=== PATIENT | male | born 1960 | race Caucasian/White ===

== ENCOUNTER 2018-10-05 15:09 | Inpatient (IN) | payer OTHER ==
--- NOTE | 2018-10-05 15:18 | ED ---
HPI Chest Pain - HPI Summary HPI Summary: A 58 y/o male brought in by [facility] ambulance presents to [facility] with a chief complaint of chest pain today. His chest pain radiates to his jaw and he also c/ o SOB. Pt denies any fever, chills, erythema of eyes, sore throat, cough, abdominal pain, N/V, dysuria, hematuria, myalgia, edema, rash, or dizziness. He denies a Hx HTN, DM or HLD but reports RA. He says that he lost 40 pounds in the last 1.5 years and is getting a colonoscopy soon for anemia. - History of Current Complaint Hx Obtained From: Patient, EMS Onset/Duration: Started Hours Ago, Still Present Timing: Constant, Lasting Hours Initial Severity: Mild Current Severity: Mild Pain Intensity: 0 Pain Scale Used: 0-10 Numeric Chest Pain Location: Diffuse Chest Pain Radiates: Yes Chest Pain Radiates To:: Jaw Character: Other: - unable to describe Aggravating Factor(s): Nothing Alleviating Factor(s): Nothing Associated Signs and Symptoms: Positive: Shortness of Breath. Negative: Dizziness, Fever, Nausea, Cough, Vomiting - Allergy/Home Medications Allergies/Adverse Reactions: Allergies Allergy/AdvReac Type Severity Reaction Status Date / Time No Known Allergies Allergy Verified 10/05/18 15:21 PMH/Surg Hx/FS Hx/Imm Hx Musculoskeletal History: Reports: Hx Rheumatoid Arthritis - IN BOTH HANDS AND FEET Review of Systems Negative: Fever, Chills Negative: Erythema Negative: Sore Throat Positive: Chest Pain Positive: Shortness Of Breath. Negative: Cough Negative: Abdominal Pain, Vomiting, Nausea Negative: dysuria, hematuria Negative: Myalgia, Edema Negative: Rash Neurological: Negative - dizziness All Other Systems Reviewed And Are Negative: Yes Physical Exam - Summary Physical Exam Summary: Constitutional: Well-developed, Well-nourished, Alert. (-) Distressed Skin: Dry, hot to the touch HENT: Normocephalic; Atraumatic Eyes: Conjunctiva normal Neck: Musculoskeletal ROM normal neck. (-) JVD, (-) Stridor, (-) Tracheal deviation Cardio: Rhythm regular, rate normal, Heart sounds normal; Intact distal pulses; The pedal pulses are 2+ and symmetric. Radial pulses are 2+ and symmetric. (-) Murmur Pulmonary/Chest wall: Effort normal. (-) Respiratory distress, (-) Wheezes, (-) Rales, (+) crackles in the left lower lung field. Abd: Soft, (-) tenderness, (-) Distension, (-) Guarding, (-) Rebound Musculoskeletal: (-) Edema Lymph: (-) Cervical adenopathy Neuro: Alert, Oriented x3 Psych: Mood and affect Normal Triage Information Reviewed: Yes Vital Signs Reviewed: Yes Diagnostics - Laboratory Result Diagrams: 10/05/18 15:25 10/05/18 15:25 Lab Statement: Any lab studies that have been ordered have been reviewed, and results considered in the medical decision making process. - Radiology CXR Radiology Interpretation Completed By: Radiologist Summary of Radiographic Findings: Moderate left pleural effusion with adjacent airspace opacification (consolidation versus. passive atelectasis). This could be further evaluated by chest CT to rule out. parapneumonic effusion. ED physician has reviewed this imaging report. - CT Chest CT Interpretation Completed By: Radiologist Summary of CT Findings: 1. Moderate left pleural effusion with mild compressive atelectasis in the left. lower lobe and mild adjacent infiltrate or atelectasis in the left lower lobe. 2. Minimal debris in the right mainstem bronchus. 3. Otherwise negative CT chest. ED physician has reviewed this imaging report. Chest Pain Course/Dx - Course Course Of Treatment: A 58 y/o male brought in by [facility] ambulance presents to [facility] with a chief complaint of chest pain today. His chest pain radiates to his jaw. Pt denies any fever, chills, erythema of eyes, sore throat, cough, abdominal pain, N/V, dysuria, hematuria, myalgia, edema, rash, or dizziness. He denies a Hx HTN, DM or HLD but reports RA. He says that he lost 40 pounds in the last 1.5 years and is getting a colonoscopy soon for anemia. The physical exam revealed that his skin is hot to the touch and he has crackles in the left lower lung field. In the ED course the patient was given Zithromax IVPB, Iohexol IV and [place] PO. Blood work and chemistries obtained. WBC of 12.3 at 15: 25. CT chest impression: 1. Moderate left pleural effusion with mild compressive atelectasis in the left. lower lobe and mild adjacent infiltrate or atelectasis in the left lower lobe. 2. Minimal debris in the right mainstem bronchus. 3. Otherwise negative CT chest. CXR impression: Moderate left pleural effusion with adjacent airspace opacification (consolidation versus. passive atelectasis). This could be further evaluated by chest CT to rule out. parapneumonic effusion. Pt is a high risk for sepsis because of his RA along with being on immunosuppresants and his DM. Discussed case with [facility], who accepted the patient for admission. The patient is agreeable with this plan. - Diagnoses Provider Diagnoses: Community acquired pneumonia, Pleural effusion, left - Provider Notifications Discussed Care Of Patient With: Wicho Todd Time Discussed With Above Provider: 20:54 Instructed by Provider To: Admit As Inpatient Discharge - Sign-Out/Discharge Documenting (check all that apply): Patient Departure - admit Patient Received Moderate/Deep Sedation with Procedure: No - Discharge Plan Condition: Fair Disposition: ADMITTED TO [facility] Referrals: No Primary Care Phys,NOPCP [Primary Care Provider] - - Attestation Statements Document Initiated by Scribe: Yes Documenting Scribe: Celestine Hernández Provider For Whom Scribe is Documenting (Include Credential): Moises Wayne MD Scribe Attestation: ICelestine, scribed for Moises Wayne MD on 10/05/18 at 2054. Status of Scribe Document: Ready Consult Consult: At 19:[address] about when the patient's CT chest will be done.
[2018-10-05 15:55] LABS: ABS Basophils 0.1 10^3/ul (0-0.2); ABS Eosinophils 0.2 10^3/ul (0-0.6); ABS Lymphocytes 0.8 10^3/ul (1.0-4.8); ABS Monocytes 0.8 10^3/ul (0-0.8); ABS Neutrophils 10.5 10^3/ul (1.5-7.7); Eosinophil % 1.3 %; Hematocrit 32 % (42-52); Hemoglobin 10.7 g/dL (14.0-18.0); INR 1.12 (0.82-1.09); Lymphocyte % 6.3 %; Mean Corpuscular HGB Conc 33 g/dL (31-36); Mean Corpuscular Hemoglobin 31 pg (27-31); Mean Corpuscular Volume 93 fL (80-94); Mean Platelet Volume 7.7 fL (7.4-10.4); Platelet Count 490 10^3/uL (150-450); Red Blood Count 3.48 10^6 /uL (4.18-5.48); Red Cell Distribution Width 14 % (10-15); White Blood Count 12.3 10^3/uL (3.5-10.8)
[2018-10-05 16:10] LABS: Albumin 3.5 g/dL (3.2-5.2); BUN/Creatinine Ratio 16.4 (8-20); Calcium 8.9 mg/dL (8.6-10.3); EGFR African American 146.4 (>60); Globulin 3.6 g/dL (2-4); Total Bilirubin 0.3 mg/dL (0.2-1.0); Total Protein 7.1 g/dL (6.4-8.9)
[2018-10-05 16:11] LABS: Troponin I 0.01 ng/mL (<0.04)
[2018-10-05] MEDS ORDERED: Azithromycin 500 mg/250 ml NS 500 MG/250 ML BAG IVPB ONE (16:30)
[2018-10-05] MEDS ORDERED: cefTRIAXone(*) 1 GM in NS 0.9% 50 ML* 50 ML IVPB ONE (16:30)
[2018-10-05] MEDS ORDERED: HYDROcodone/ACETAMIN 5-325 MG* 1 TAB PO ONE (16:43)
[2018-10-05] MEDS ORDERED: Iohexol 300* (CONTRAST) 10 ML SDV IV ONE (17:19)
[2018-10-05] MEDS ORDERED: NS 0.9% 1000 ML** 3,000 ML IV ONE (20:55)
[2018-10-05] MEDS: NS 0.9% 1000 ML** 2,100 ML IV ONE ×2 (21:00→23:12)
[2018-10-05] MEDS ORDERED: Albuterol/Ipratropium NEB.SOL* Albuterol 2.5 MG/Ipratropium 0.5 MG 3 ML INH PRN (21:45)
[2018-10-05] MEDS ORDERED: Nicotine PATCH 21 MG/24 HR* PATCH TRANSDERM ONE (22:17)
[2018-10-05] MEDS: Enoxaparin(*) 40 MG/0.4 ML SYR SUBCUT SCH (23:12)
--- NOTE | 2018-10-05 23:45 | HP ---
CC: Dr. Garvin * HISTORY AND PHYSICAL: DATE OF ADMISSION: 10/05/18 PRIMARY CARE PROVIDER: None. FOUNDRY WORKER: Dr. Garvin. ATTENDING PHYSICIAN: Dr. Todd * (dictated by ANTONIETTA Lawson). CHIEF COMPLAINT: "Pain in my chest." HISTORY OF PRESENT ILLNESS: Mr. Hutchinson is a 58-year-old male with past medical history significant for only rheumatoid arthritis, who presented to ER today with complaints of pain in the chest. He states that it occurred today after he ate lunch. He notes that it was sudden in onset. He notes that the pain is located on the anterior chest bilaterally. Pain is with deep breathing. He notes that the pain is "jagged," "shooting" pain with each inhalation. The pain is nontender to palpation. Currently his pain is rated at 5/10. There is no radiation. No diaphoresis. No extremity edema. The patient denies cough. He does note subjective fevers and chills as well as shortness of breath. He notes that he had a similar feeling on Wednesday. He states that he took a nap and felt better but that he has had increased fatigue and sleeping recently. In the ER, the patient is noted to be tachycardic, tachypneic with leukocytosis , lactic acid is negative. The patient was given [place] 5, azithromycin 500, ceftriaxone 1 g. Workup included laboratory data which revealed leukocytosis, decreased H and H, and elevated platelets. Troponins have been negative x2. Again, there has been no lactic acidosis. Chest x-ray and CT of the chest were ordered and both revealed left lower lobe infiltrate with left pleural effusion. Hospitalist team was asked to evaluate the patient for admission. PAST MEDICAL HISTORY: Rheumatoid arthritis. PAST SURGICAL HISTORY: Tonsillectomy. HOME MEDICATIONS: 1. Folic acid 1 mg p.o. daily. 2. Ibuprofen 800 mg p.o. b.i.d. 3. Methotrexate 15 mg p.o. weekly. 4. Xeljanz 5 mg p.o. b.i.d. ALLERGIES: No known drug allergies. FAMILY HISTORY: Father and brother both had MIs at the age of 57. Mother had glioblastoma, CVA. Paternal grandfather had colon cancer. Denies family history of diabetes mellitus. Denies family history of lung disease. SOCIAL HISTORY: The patient states that he smokes approximately two-thirds of a pack per day times approximately 45 years. He drinks occasionally, approximately 2 beers per week. He uses marijuana almost daily. 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 He lives alone. In the event that he is unable to make his own medical decisions, he has appointed his Kriss Hutchinson to be his surrogate decision maker. REVIEW OF SYSTEMS: A 10-point review of systems has been performed and all the pertinent positives and negatives are in the HPI, all other systems are negative. PHYSICAL EXAMINATION GENERAL: Mr. Hutchinson is a well-developed, well-nourished, thin, middle aged male who is sitting up in bed. He has no oxygen requirements currently. He is able to talk in complete sentences without shortness of breath or use of accessory muscles. He appears fatigued but is able to engage in conversation. He is cooperative and appropriate. VITAL SIGNS: Temperature 99.8 temporal, heart rate 94, respiratory rate 23, oxygen saturation 95% on room air, blood pressure 150/91. HEENT: PERRL. EOMI. Normocephalic, atraumatic. Nonicteric sclerae. Oral mucous membranes are moist and without lesions. The pharynx is clear. Hearing is grossly intact. PULMONARY: Symmetrical chest expansion, no use of accessory muscles. Bilateral lung reyes with coarse rhonchi and wheezing throughout. Chest wall nontender to palpation. CARDIOVASCULAR: Regular rate and rhythm without murmurs, rubs, clicks, or gallops. There is no JVD. ABDOMEN: Flat, bowel sounds noted in all quadrants. There is no tenderness to palpation throughout the abdomen. MUSCULOSKELETAL: Full range of motion. There are multiple nodules noted at bilateral elbows and wrists as well as a left lateral PIP nodule. These are chronic. The patient has extensive joint pain from RA. NEURO: The patient is awake. He is alert and oriented x3. He has no focal neurological deficit. Again, he is able to move all of his extremities. DIAGNOSTIC STUDIES/LABORATORY DATA: WBC 12.3, RBC 3.48, Hgb 10.7, HCT 32, platelets 490. CMP within normal limits except for glucose 125. Lactic acid 2.0, troponin 0.01 x3. EKG: Sinus tachycardia with a rate of 102. P-waves noted, irregular rhythm. Chest x-ray, impression: Moderate left pleural effusion with adjacent airspace opacification (consolidation versus passive atelectasis). This could be further evaluated by chest CT to rule out parapneumonic effusion. CT of the chest, impression: Moderate left pleural effusion with mild compressive atelectasis in the left lower lobe and mild adjacent infiltrate or atelectasis in the left lower lobe. Minimal debris in the right main stem bronchus. Otherwise, negative CT chest. ASSESSMENT AND PLAN: Mr. Hutchinson is a 58-year-old male with a past medical history of rheumatoid arthritis, who presented to the ER today with complaints of pain in the chest and was found to have negative troponins, no ST changes on EKG, and imaging positive for left lower lobe infiltrate with pleural effusion. The patient will be admitted inpatient for: 1. Sepsis. The patient comes in with tachycardia, tachypnea, leukocytosis. There is no lactic acidosis. He required O2 at the beginning but currently is not on O2. He has left lower lobe infiltrates with left pleural effusion on CT. He has been given a dose of ceftriaxone and azithromycin in the ER, this will be continued during his stay. Ultrasound thoracentesis has been ordered. DuoNeb q.4 hours p.r.n. also ordered for wheeze, shortness of breath. 2. Rheumatoid arthritis. The patient's home medications will be held for the time being. 3. Tobacco abuse. The patient was offered a patch and is agreeable. This will be ordered. 4. DVT prophylaxis: According to the DVT risk assessment, the patient scores 1 placing him at a low risk. Lovenox has been ordered. 5. Code status: Full code. TIME SPENT: Approximately 60 minutes were spent on this admission, greater than half that time was spent with the patient obtaining history, performing physical, and reviewing the plan of care. This case has been reviewed with my attending, who is in agreement with the plan of care. ANTONIETTA SAUCEDA [id number]/[facility] #: [id number] MTDCassandra
[2018-10-06 07:02] LABS: ABS Basophils 0.1 10^3/ul (0-0.2); ABS Lymphocytes 0.6 10^3/ul (1.0-4.8); ABS Monocytes 0.7 10^3/ul (0-0.8); ABS Neutrophils 9.2 10^3/ul (1.5-7.7); Eosinophil % 0.4 %; Hematocrit 28 % (42-52); Hemoglobin 9.6 g/dL (14.0-18.0); Lymphocyte % 5.7 %; Mean Corpuscular HGB Conc 34 g/dL (31-36); Mean Corpuscular Hemoglobin 31 pg (27-31); Mean Corpuscular Volume 92 fL (80-94); Mean Platelet Volume 7.6 fL (7.4-10.4); Platelet Count 404 10^3/uL (150-450); Red Blood Count 3.07 10^6 /uL (4.18-5.48); Red Cell Distribution Width 14 % (10-15); White Blood Count 10.7 10^3/uL (3.5-10.8)
[2018-10-06 07:20] LABS: BUN/Creatinine Ratio 17.4 (8-20); Calcium 8.5 mg/dL (8.6-10.3); EGFR Non-African American 186.7 (>60); Potassium 3.9 mmol/L (3.5-5.0)
[2018-10-06] MEDS: Nicotine PATCH 21 MG/24 HR* PATCH TRANSDERM SCH (11:30)
[2018-10-06] MEDS: Nicotine Patch Removal NOTE PATCH OFF SCH ×2 (11:31→21:55)
[2018-10-06] MEDS: Folic Acid TAB* 1 MG PO SCH (11:32)
[2018-10-06 15:20] LABS: Body Fluid Source Pleural Fluid
[2018-10-06] MEDS: cefTRIAXone(*) 1 GM in NS 0.9% 50 ML* 50 ML IVPB SCH (16:55)
[2018-10-06] MEDS: Acetaminophen TAB* 325 MG PO PRN (17:03)
[2018-10-06] MEDS: Azithromycin IV(*) 250 MG in NS 0.9% 250 ML* 250 ML IVPB SCH (17:34)
--- NOTE | 2018-10-06 17:47 | PN ---
Subjective Date of Service: 10/06/18 Interval History: Patient resting in bed on assessment. He reports he feels improvement in his breathing today. He reports prior to presenting to the ED he had difficulty taking deep breaths as it caused chest pain. He reports today he can take a deep breath without pain. Denies fever, chills, and cough. He reports that he has been losing weight recently unintentionally and was also recently informed by outpatient provider that he was anemic. Given this patient was set up for a colonoscopy which he has not had completed yet. Objective Active Medications: Acetaminophen (Tylenol Tab*) 650 mg PO Q6H PRN PRN Reason: fever, mild pain Last Admin: 10/06/18 17:03 Dose: 650 mg Albuterol/Ipratropium (Duoneb (Albuterol 2.5 Mg/Ipratropium 0.5 Mg)) 1 neb INH [id number] AWAKE PRN PRN Reason: sob/wheexing Enoxaparin Sodium (Lovenox(*)) 40 mg SUBCUT Q24H [facility] Last Admin: 10/05/18 23:12 Dose: 40 mg Folic Acid (Folvite Tab*) 1 mg PO DAILY [facility] Last Admin: 10/06/18 11:32 Dose: 1 mg Azithromycin 250 mg/ Sodium (Chloride) 250 mls @ 250 mls/hr IVPB Q24H [facility] Last Admin: 10/06/18 17:34 Dose: 250 mls/hr Ceftriaxone Sodium 1 gm/ (Sodium Chloride) 50 mls @ 200 mls/hr IVPB Q24H [facility] Last Admin: 10/06/18 16:55 Dose: 200 mls/hr Nicotine (Nicotine Patch 21 Mg/24 Hr*) 1 patch TRANSDERM DAILY [facility] Last Admin: 10/06/18 11:30 Dose: 1 patch Pharmacy Profile Note (Nicotine Patch Removal Note*) 1 note PATCH OFF 2100 [facility] Last Admin: 10/06/18 11:31 Dose: 1 note Vital Signs - 8 hr 10/06/18 10/06/18 11:37 11:41 Temperature 97.8 F Pulse Rate 94 Respiratory 20 18 Rate Blood Pressure 153/81 (mmHg) O2 Sat by Pulse 96 Oximetry Oxygen Devices in Use Now: None Appearance: Comfortable, NAD Eyes: No Scleral Icterus Ears/Nose/Mouth/Throat: Clear Oropharnyx, Mucous Membranes Moist Neck: NL Appearance and Movements; NL JVP Respiratory: Symmetrical Chest Expansion and Respiratory Effort, - - Moderately diminished lung sounds on left. Clear and only slightly decreased aeration on right. Cardiovascular: NL Sounds; No Murmurs; No JVD, No Edema Abdominal: NL Sounds; No Tenderness; No Distention Lymphatic: No Cervical Adenopathy Extremities: No Clubbing, Cyanosis Skin: No Rash or Ulcers Neurological: Alert and Oriented x 3 Nutrition: Taking PO's Result Diagrams: 10/06/18 06:28 10/06/18 06:28 Additional Lab and Data: Laboratory Results - last 24 hr 10/05/18 10/05/18 10/06/18 18:01 21:21 06:28 WBC RBC Hgb Hct MCV MCH MCHC RDW Plt Count MPV Neut % (Auto) Lymph % (Auto) [place] % (Auto) Eos % (Auto) Baso % (Auto) Absolute Neuts (auto) Absolute Lymphs (auto) Absolute Monos (auto) Absolute Eos (auto) Absolute Basos (auto) Absolute Nucleated RBC Nucleated RBC % Sodium 136 Potassium 3.9 Chloride 103 Carbon Dioxide 25 Anion Gap 8 BUN 8 Creatinine 0.46 L Est GFR ( Amer) 226.0 Est GFR (Non-Af Amer) 186.7 BUN/Creatinine Ratio 17.4 Glucose 120 H Calcium 8.5 L Troponin I 0.01 0.01 Fluid Source Fluid Volume Fluid Color Fluid Appearance Fluid WBC Fluid RBC 10/06/18 10/06/18 06:28 14:23 WBC 10.7 RBC 3.07 L Hgb 9.6 L Hct 28 L MCV 92 MCH 31 MCHC 34 RDW 14 Plt Count 404 MPV 7.6 Neut % (Auto) 86.8 Lymph % (Auto) 5.7 [place] % (Auto) 6.5 Eos % (Auto) 0.4 Baso % (Auto) 0.6 Absolute Neuts (auto) 9.2 H Absolute Lymphs (auto) 0.6 L Absolute Monos (auto) 0.7 Absolute Eos (auto) 0.0 Absolute Basos (auto) 0.1 Absolute Nucleated RBC 0.0 Nucleated RBC % 0.0 Sodium Potassium Chloride Carbon Dioxide Anion Gap BUN Creatinine Est GFR ( Amer) Est GFR (Non-Af Amer) BUN/Creatinine Ratio Glucose Calcium Troponin I Fluid Source Pleural fluid Fluid Volume 22 Fluid Color Yellow Fluid Appearance Cloudy Fluid WBC 4961 Fluid RBC 2362 Microbiology and Other Data: Microbiology 10/06/18 14:23 Gram Stain - Final Pleural Fluid 10/05/18 15:34 Aerobic Blood Culture - Preliminary Blood Venous No Growth Day 1 Anaerobic Blood Culture - Preliminary No Growth Day 1 10/05/18 15:35 Aerobic Blood Culture - Preliminary Blood Venous No Growth Day 1 Anaerobic Blood Culture - Preliminary No Growth Day 1 10/06/18 01:13 Legionella Urinary Antigen - Final Urine Negative Legionella Antigen Streptococcus pneumoniae Ag Screen - Final Negative S. pneumo Antigen Assess/Plan/Problems-Billing Assessment: 58 yr old male with pmh of RA; who presented to ED with shortness of breath and chest pain - Patient Problems (1) Sepsis Comment: - Met sepsis on admission with leukocytosis, tachycardia and source of lung - Resolved - Cont abx and supportive care - Blood cultures are negative to date - Urine antigens negative (2) Chest pain Comment: - Resolved - Reports previously it occured with deep breathing, therefore, inhibited him from taking a deep breath - Trops negative - EKG unremarkable (3) Shortness of breath Comment: - Reports improvement today - Initially requiring supplemental O2 to maintain oxygen saturation, but currently on room air and wnl. - Suspected secondary to effusion and/or infection - Cont abx - Thoracentesis today with radiology (4) Pleural effusion Comment: - Thoracentesis today with radiology - Pleural fluid ordered placed (5) Rheumatoid arthritis Comment: - Cont holding home medication for the time being. - If stay is prolonged will contact Dr Cortez (6) Weight loss Comment: - Patient reports unintentional weight loss - Has outpatient follow up for colonoscopy - Defer to outpatient provider (7) Anemia Comment: - - Iron studies ordered. - Stool ordered - Patient reports this has been noted by pcp recently (8) DVT prophylaxis Comment: - Lovenox Status and Disposition: Inpatient. Discharge home when medically stable Attending: Nathalie Saez
[2018-10-06 18:15] LABS: Body Fluid Band 5 %; Body Fluid Mono 2 %
[2018-10-06 19:11] LABS: Total Iron Binding Capacity 273 mcg/dL (250-450); Transferrin 195 mg/dL (203-362)
[2018-10-06 19:28] LABS: Ferritin 110.6 ng/mL (24-336)
[2018-10-06 19:31] LABS: Folate 11.06 ng/mL (>3.99)
[2018-10-06 19:36] LABS: % Iron Saturation 7 % (15-55); Iron < 20 ug/dL (50-212)
[2018-10-06] MEDS: Enoxaparin(*) 40 MG/0.4 ML SYR SUBCUT SCH (21:54)
[2018-10-07 06:26] LABS: ABS Eosinophils 0.1 10^3/ul (0-0.6); ABS Lymphocytes 0.8 10^3/ul (1.0-4.8); ABS Monocytes 0.7 10^3/ul (0-0.8); ABS Neutrophils 7.4 10^3/ul (1.5-7.7); Eosinophil % 0.9 %; Hematocrit 29 % (42-52); Lymphocyte % 8.5 %; Mean Corpuscular HGB Conc 34 g/dL (31-36); Mean Corpuscular Hemoglobin 31 pg (27-31); Mean Corpuscular Volume 92 fL (80-94); Mean Platelet Volume 7.8 fL (7.4-10.4); Platelet Count 399 10^3/uL (150-450); Red Cell Distribution Width 14 % (10-15)
[2018-10-07 06:40] LABS: Anion Gap 8 mmol/L (2-11); BUN/Creatinine Ratio 14.6 (8-20); Blood Urea Nitrogen 7 mg/dL (6-24); CO2 Carbon Dioxide 26 mmol/L (22-32); Calcium 8.4 mg/dL (8.6-10.3); Chloride 102 mmol/L (101-111); EGFR African American 215.1 (>60); EGFR Non-African American 177.8 (>60); Glucose 106 mg/dL (70-100); Potassium 3.8 mmol/L (3.5-5.0); Sodium 136 mmol/L (135-145)
[2018-10-07 08:31] LABS: Corrected Retic Count 0.7 % (0.5-1.5); Hematocrit for Retic CNT 30 % (42-52); Immature Retic Fraction 0.52; RBC Retic Count 3.24 10^6/uL (4.18-5.48)
--- NOTE | 2018-10-07 09:58 | PN ---
Subjective Date of Service: 10/07/18 Interval History: Resting in bed on assessment. Reports improvement in breathing since admission and since thoracentesis last evening. Improved aeration on left. Denies chest pain, palpitations, fever, chills, cough, nausea, vomiting. Received call from RN that patient had short run of SVT early this morning and a 4 beat run of VT early this morning. Later received call from RN that patient was tachy in the low 100 to 120. Patient asymptomatic per RN. Objective Active Medications: Acetaminophen (Tylenol Tab*) 650 mg PO Q6H PRN PRN Reason: fever, mild pain Last Admin: 10/06/18 17:03 Dose: 650 mg Albuterol/Ipratropium (Duoneb (Albuterol 2.5 Mg/Ipratropium 0.5 Mg)) 1 neb INH [id number] AWAKE PRN PRN Reason: sob/wheexing Enoxaparin Sodium (Lovenox(*)) 40 mg SUBCUT Q24H [facility] Last Admin: 10/06/18 21:54 Dose: 40 mg Folic Acid (Folvite Tab*) 1 mg PO DAILY [facility] Last Admin: 10/06/18 11:32 Dose: 1 mg Azithromycin 250 mg/ Sodium (Chloride) 250 mls @ 250 mls/hr IVPB Q24H [facility] Last Admin: 10/06/18 17:34 Dose: 250 mls/hr Ceftriaxone Sodium 1 gm/ (Sodium Chloride) 50 mls @ 200 mls/hr IVPB Q24H [facility] Last Admin: 10/06/18 16:55 Dose: 200 mls/hr Nicotine (Nicotine Patch 21 Mg/24 Hr*) 1 patch TRANSDERM DAILY [facility] Last Admin: 10/06/18 11:30 Dose: 1 patch Pharmacy Profile Note (Nicotine Patch Removal Note*) 1 note PATCH OFF 2100 [facility] Last Admin: 10/06/18 21:55 Dose: 1 note Vital Signs - 8 hr 10/07/18 10/07/18 03:06 07:19 Temperature 99.1 F 98.1 F Pulse Rate 105 98 Respiratory 15 14 Rate Blood Pressure 146/80 132/75 (mmHg) O2 Sat by Pulse 98 96 Oximetry Oxygen Devices in Use Now: None Appearance: Comfortable, NAD Eyes: No Scleral Icterus Ears/Nose/Mouth/Throat: Clear Oropharnyx, Mucous Membranes Moist Neck: NL Appearance and Movements; NL JVP Respiratory: Symmetrical Chest Expansion and Respiratory Effort, Clear to Auscultation, - - Improved aeration on left Cardiovascular: NL Sounds; No Murmurs; No JVD, RRR, No Edema Abdominal: NL Sounds; No Tenderness; No Distention Lymphatic: No Cervical Adenopathy Extremities: No Edema Skin: No Rash or Ulcers Neurological: Alert and Oriented x 3 Nutrition: Taking PO's Result Diagrams: 10/07/18 05:25 10/07/18 05:25 Additional Lab and Data: Laboratory Results - last 24 hr 10/06/18 10/06/18 10/06/18 14:23 14:23 14:23 WBC RBC RBC (Retic) Hgb Hct HCT (Retic) MCV MCH MCHC RDW Plt Count MPV Neut % (Auto) Lymph % (Auto) Grand % (Auto) Eos % (Auto) Baso % (Auto) Absolute Neuts (auto) Absolute Lymphs (auto) Absolute Monos (auto) Absolute Eos (auto) Absolute Basos (auto) Absolute Nucleated RBC Nucleated RBC % Retic Count, Calc Corrected Retic Count Retic Shift Factor Retic Production Index Immature Retic Fraction Mean Retic Volume Sodium Potassium Chloride Carbon Dioxide Anion Gap BUN Creatinine Est GFR ( Amer) Est GFR (Non-Af Amer) BUN/Creatinine Ratio Glucose Calcium Total Bilirubin Direct Bilirubin Indirect Bilirubin Lactate Dehydrogenase Urine Color Urine Appearance Urine pH Ur Specific [place] Urine Protein Urine Ketones Urine Blood Urine Nitrate Urine Bilirubin Urine Urobilinogen Ur Leukocyte Esterase Urine Glucose Fluid Source Pleural fluid Pleural fluid Fluid Cell Count Rvw By Fluid Glucose < 2 Fluid LDH 4143 10/07/18 10/07/18 10/07/18 05:25 05:25 17:05 WBC 9.0 RBC 3.20 L RBC (Retic) 3.24 L Hgb 10.0 L Hct 29 L HCT (Retic) 30 L MCV 92 MCH 31 MCHC 34 RDW 14 Plt Count 399 MPV 7.8 Neut % (Auto) 82.4 Lymph % (Auto) 8.5 Grand % (Auto) 7.8 Eos % (Auto) 0.9 Baso % (Auto) 0.4 Absolute Neuts (auto) 7.4 Absolute Lymphs (auto) 0.8 L Absolute Monos (auto) 0.7 Absolute Eos (auto) 0.1 Absolute Basos (auto) 0.0 Absolute Nucleated RBC 0.0 Nucleated RBC % 0.0 Retic Count, Calc 1.1 Corrected Retic Count 0.7 Retic Shift Factor 1.5 Retic Production Index 0.50 Immature Retic Fraction 0.52 Mean Retic Volume 113.5 Sodium 136 Potassium 3.8 Chloride 102 Carbon Dioxide 26 Anion Gap 8 BUN 7 Creatinine 0.48 L Est GFR ( Amer) 215.1 Est GFR (Non-Af Amer) 177.8 BUN/Creatinine Ratio 14.6 Glucose 106 H Calcium 8.4 L Total Bilirubin 0.30 Direct Bilirubin 0.00 L Indirect Bilirubin Not Reportable Lactate Dehydrogenase 197 Urine Color Yellow Urine Appearance Turbid Urine pH 8.0 Ur Specific [place] 1.015 Urine Protein Negative Urine Ketones Negative Urine Blood Negative Urine Nitrate Negative Urine Bilirubin Negative Urine Urobilinogen Negative Ur Leukocyte Esterase Negative Urine Glucose Negative Fluid Source Fluid Cell Count Rvw By Fluid Glucose Fluid LDH Microbiology and Other Data: Microbiology 10/05/18 15:34 Blood Venous Aerobic Blood Culture - Preliminary No Growth Day 2 10/05/18 15:34 Blood Venous Anaerobic Blood Culture - Preliminary No Growth Day 2 10/05/18 15:35 Blood Venous Aerobic Blood Culture - Preliminary No Growth Day 2 10/05/18 15:35 Blood Venous Anaerobic Blood Culture - Preliminary No Growth Day 2 10/06/18 14:23 Pleural Fluid Gram Stain - Final 10/06/18 14:23 Pleural Fluid Body Fluid Culture - Preliminary No Growth Day 1 10/06/18 01:13 Urine Legionella Urinary Antigen - Final Negative Legionella Antigen 10/06/18 01:13 Urine Streptococcus pneumoniae Ag Screen - Final Negative S. pneumo Antigen Assess/Plan/Problems-Billing Assessment: 58 yr old male with pmh of RA; who presented to ED with shortness of breath and chest pain - Patient Problems (1) Sepsis Comment: - Had temp of 100.4 today and noted to be increasingly tachy, therefore, repeat blood cultures and lactic acid ordered - Met sepsis on admission with leukocytosis, tachycardia and source of lung - Cont abx and supportive care - Blood cultures are negative to date - Urine antigens negative (2) Chest pain Comment: - Resolved - Reports previously it occured with deep breathing, therefore, inhibited him from taking a deep breath - Trops negative - EKG unremarkable (3) Shortness of breath Comment: - Reports improvement today - Initially requiring supplemental O2 to maintain oxygen saturation, but currently on room air and wnl. - Suspected secondary to effusion and/or infection - Cont abx - Thoracentesis yesterday (4) Pleural effusion Comment: - Thoracentesis yesterday - Pleural fluid consistent with possible parapneumonic effusion, therefore, continue Rocephin, d/c Azithro and started Flagyl - Cytology consistent with inflammation (5) Rheumatoid arthritis Comment: - Cont holding home medication for the time being. - If stay is prolonged will contact Dr Cortez (6) Weight loss Comment: - Patient reports unintentional weight loss - Has outpatient follow up for colonoscopy - Defer to outpatient provider (7) Anemia Comment: - Iron studies ordered. - Stool ordered - Patient reports this has been noted by pcp recently (8) DVT prophylaxis Comment: - Lovenox Status and Disposition: Inpatient. Discharge home when medically stable Attending: Nathalie Saez
[2018-10-07 10:28] LABS: LDH 197 U/L (140-271)
[2018-10-07] MEDS: Nicotine PATCH 21 MG/24 HR* PATCH TRANSDERM SCH (10:47)
[2018-10-07] MEDS: Folic Acid TAB* 1 MG PO SCH (10:47)
[2018-10-07 16:33] LABS: Lactate Dehydrogenase, BF 4143 U/L
[2018-10-07] MEDS ORDERED: Perflutren Lipid Microsphere* 3 ML VIAL ONE (16:48)
[2018-10-07] MEDS: cefTRIAXone(*) 1 GM in NS 0.9% 50 ML* 50 ML IVPB SCH (17:12)
[2018-10-07 17:13] LABS: Urine Appearance Turbid; Urine Bilirubin Negative (Negative); Urine Blood Negative (Negative); Urine Color Yellow; Urine Glucose Negative (Negative); Urine Ketones Negative (Negative); Urine Nitrite Negative (Negative); Urine Protein Negative (Negative); Urine Specific Gravity 1.015 (1.010-1.030); Urine Urobilinogen Negative (Negative)
[2018-10-07] MEDS: Azithromycin IV(*) 250 MG in NS 0.9% 250 ML* 250 ML IVPB SCH (17:49)
--- NOTE | 2018-10-07 19:19 | ECHO ---
*[facility]* [place] [address] Fax #: [phone] Transthoracic Echocardiogram Patient: [place] Hutchinson : 1960 Study Date: 10/07/2018 Age: 58 Gender: M HR: 136 bpm Height: 70 in /177.8 cm BSA: 1.82 m^2 Weight: 144.7 lb /65.8 kg BMI: 20.8 kg/m^2 *Recreational Leader: * Rut Gomez RDCS RN *Referring Physician: * China Bunn *Reading Physician: * Narendra Gaytan MD Indications: SOB. History: Rheumatoid arthritis Risk factors: Current tobacco use. Conclusions Summary: 1. Left ventricle: The cavity size is normal. Wall thickness is normal. Systolic function is mildly reduced. The visually estimated ejection fraction is 40-45%. The calculated ejection fraction is 45%. There is mild global hypokinesis. 2. Normal cardiac chamber sizes. 3. Functionally benign heart valves. 4. There is no prior echocardiogram available to compare with at this time. Study data: Transthoracic echocardiogram. Procedure: Transthoracic echocardiography was performed. Image quality was fair. The study was technically limited due to body habitus and Smoking history. Definity 3 ml was administered IV for image enhancement by Renard Gomez RN, RDCS. Complete 2D, spectral Doppler, and color flow Doppler. Location: Bedside. Patient status: Inpatient. Patient room number: 431. Rhythm: Tachycardia with PACs. Findings Left ventricle: The cavity size is normal. Wall thickness is normal. Systolic function is mildly reduced. The visually estimated ejection fraction is 40-45%. The calculated ejection fraction is 45%. There is mild global hypokinesis. There is no consistent Doppler evidence of clinically significant diastolic dysfunction. Right ventricle: The cavity size is normal. Systolic function is normal. Left atrium: The atrium is normal in size. Right atrium: The atrium is normal in size. Mitral valve: The leaflets are mildly thickened. There is no evidence of stenosis. There is trace to mild regurgitation. Aortic valve: Not well visualized. The leaflets are mildly thickened. There is no evidence of stenosis. There is no regurgitation. Tricuspid valve: The leaflets are normal thickness. There is trace to mild regurgitation. Pulmonic valve: Not well visualized. There is no evidence of stenosis. There is no significant regurgitation. Aorta: Aortic root: The aortic root is not dilated. Ascending aorta: The ascending aorta is not visualized. Aortic arch: The aortic arch is not dilated. Pericardium: There is no pericardial effusion. Pulmonary arteries: Not well visualized. Systemic veins: Inferior vena cava: The vessel is normal in size. The respirophasic diameter changes are in the normal range (>= 50%). Measurements Left ventricle Value Ref Right atrium continued Value Ref CHARLETTE, LAX (L) 4.0 cm 4.2 - 5.8 SI dim, ES, A4C 3.8 cm 3.4 - 5.3 ESD, LAX 3.1 cm 2.5 - 4.0 Estimated RAP 3 mm Hg --------- FS, LAX (L) 22 % 25 - 43 PW, ED 1.0 cm 0.6 - 1.0 Aortic valve Value Ref IVS/PW, ED 0.97 Nita diam, ED 2.0 cm --------- PW/ID, ED 0.26 Peak v, S 1.6 m/sec --------- E', lat nita, TDI (L) 7.5 cm/sec >=10.0 VTI, S 26.5 cm -- ------- E/e', lat nita, 10 Mean grad, S 7.0 mm Hg ----- ---- TDI Peak grad, S 12.0 mm Hg --------- E', med nita, TDI 8.1 cm/sec >=7.0 LVOT/AV, VTI ratio 0.67 -- ------- E/e', med nita, 9 TDI Mitral valve Value Ref E', avg, TDI 7.8 cm/sec Peak E 0.75 m/sec ----- ---- E/e', avg, TDI 10 <=14 Peak A 0.66 m/sec -- ------- Decel time 151 ms --------- LVOT Value Ref Peak grad, D 2.2 mm Hg --------- Peak julia, S 1.31 m/sec Peak E/A ratio 1.1 --------- VTI, S 17.7 cm Peak grad, S 7 mm Hg Pulmonic valve Value Ref Mean grad, S 3 mm Hg Peak v, S 1.26 m/sec --------- Peak grad, S 6.0 mm Hg --------- Ventricular septum Value Ref IVS, ED 1.0 cm 0.6 - 1.0 Aortic root Value Ref Root diam 3.2 cm <4.0 Right ventricle Value Ref CHARLETTE minor ax, 2.9 cm 1.9 - 3.5 Aortic arch Value Ref A4C mid Arch diam 2.6 cm --------- Left atrium Value Ref Decending aorta Value Ref AP dim, ES 3.10 cm 3.00 - Corina peak julia 0.98 m/sec --------- 4.00 ML dim, A4C 2.9 cm Inferior vena cava Value Ref SI dim, A4C 4.4 cm Diam 0.9 cm --------- Vol/bsa, ES, 1-p (L) 10 ml/m^2 12 - 37 A4C Vol/bsa, ES, A/L (L) 15 ml/m^2 16 - 34 Right atrium Value Ref ML dim, ES, A4C 3.1 cm 2.6 - 4.4 Legend: (L) and (H) rona values outside specified reference range. Prepared and electronically signed by Narendra Gaytan MD 10/07/2018 19:19
[2018-10-07] MEDS: Enoxaparin(*) 40 MG/0.4 ML SYR SUBCUT SCH (20:18)
[2018-10-07] MEDS: Nicotine Patch Removal NOTE PATCH OFF SCH (20:18)
[2018-10-07] MEDS: Acetaminophen TAB* 325 MG PO PRN (20:29)
[2018-10-07] MEDS: metroNIDAZOLE IV 500 MG/100ML* 500 MG/100 ML BAG IVPB SCH (22:01)
--- NOTE | 2018-10-07 22:18 | CONS ---
CC: Dr. Korey Garvin CARDIOLOGY CONSULTATION: DATE OF CONSULT: 10/07/18 REFERRING PHYSICIAN: China Bunn NP REASON FOR CARDIOLOGY CONSULTATION: Shortness of breath and mild cardiomyopathy. HISTORY OF PRESENT ILLNESS: I was kindly asked by Ms. Bunn of the hospitalist medicine service to perform cardiology consultation on Mr. Hutchinson. He was admitted to the hospital with shortness of breath 2 days ago and subsequently is found to have mild cardiomyopathy on echocardiogram today. The patient notes that he had shortness of breath and chest discomfort acutely 2 days ago. When he came to the hospital, he was found to have a large left pleural effusion, for which he underwent thoracentesis yesterday with removal of 1300 cc of fluid, with analysis pending. He states his breathing is back to normal. He was noted to be tachycardic, so he had an echocardiogram today ( please see also that report), but in brief that showed mild cardiomyopathy with ejection fraction of 40% to 45%. PAST MEDICAL HISTORY: Significant for rheumatoid arthritis x11 years. PAST SURGICAL HISTORY: Tonsillectomy. HOME MEDICATIONS: 1. Folic acid 1 mg once a day. 2. Ibuprofen 800 mg p.o. b.i.d. 3. Methotrexate 50 mg per week. 4. Xeljanz 5 mg p.o. b.i.d. ALLERGIES TO MEDICATIONS: None. He denies shrimp, seafood, or dye allergy. FAMILY HISTORY: His father had PA at 57 and his brother had PA at 57. There is a family history of stroke and cancer in his mother. No family history of diabetes. SOCIAL HISTORY: He smokes 2/3rds of a pack of cigarettes per day and has done so for 40+ years. He is planning to quit. He occasionally drinks alcohol. He smokes marijuana. He is and lives alone. 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 He does not do regular exercise due to his rheumatoid arthritis. REVIEW OF SYSTEMS: He denies personal history of stroke, cancer, vomiting of blood, coughing up blood, bright red blood per rectum, bleeding stomach ulcers. He notes little bit of lightly blood tinged toilet paper when he wipes and has been planning to get a colonoscopy for anemia. He denies renal calculi, chololithiasis. Denies asthma, emphysema. He was told he had pneumonia on admission here on 10/05/18. He denies tuberculosis, sleep apnea, home oxygen use, diabetes. He has labile hypertension. He denies prior PA, congestive heart failure, cardiac surgery, cardiac murmurs. He denies palpitations, but when he checks his pulse, he feels it occasionally skips. He denies psychiatric illnesses, lupus, psoriasis, seizures, Parkinson's disease, myasthenia gravis. He has rheumatoid arthritis for 11 years. He denies thyroid disorders, liver disorders, kidney disorders, claudication symptoms, pulmonary emboli, deep venous thrombosis, peripheral arterial disease, heartburn symptoms, peripheral edema. All other review of systems are negative x14 except as per this documentation. PHYSICAL EXAM: Height 5 feet 10 inches, weight 145 pounds, temperature 98.1 to 100.4 degrees Fahrenheit, pulse 121, blood pressure 140/77, O2 saturation 98%. On general exam, he is a chronically ill-appearing gentleman, in no acute distress. HEENT shows the cranium is normocephalic and atraumatic. He has dry mucosal membranes. Neck veins are not distended. There are no carotid bruits visible. Skin warm and perfused. Affect is appropriate. He appears oriented. No significant kyphoscoliosis on back exam. Lungs reveals mildly decreased breath sounds at the left base. No wheezes, no rhonchi. Cardiac Exam: S1, S2. Regular rate. No significant murmurs, rubs, or gallop. PMI is nondisplaced. Abdomen: Soft and nondistended, appears benign. Extremities: Show evidence of RA deforming arthritis. No significant edema. Pulses appear grossly intact. DIAGNOSTIC STUDIES/LAB DATA: The patient completed a transthoracic echocardiogram earlier today. (Please see his lab report). It showed moderately reduced left ventricular ejection fraction of 40% to 45% with normal cardiac chamber sizes, functionally benign heart valves. Sodium 136, potassium 3.8, chloride 102, bicarbonate 26, BUN 7, creatinine 0.48. Troponin 0.01 x2. INR 1.12. White blood cell count 9, hematocrit 29, platelet count 399. IMPRESSION: Mr. Hutchinson is a pleasant 58-year-old gentleman with a longstanding history of rheumatoid arthritis admitted with shortness of breath with a large left pleural effusion, and he notes that his shortness of breath is resolved post thoracentesis pf 1.3 L (fluid analysis pend). He does have a temperature and sinus tachycardia. Review of telemetry also shows brief runs of paroxysmal supraventricular tachycardia. He is found to have mild cardiomyopathy on echocardiogram, which may be related to his history of rheumatoid arthritis, rheumatoid arthritis therapy, and recent apparent infection. He will benefit from an ischemic evaluation as an outpatient. His paroxysmal supraventricular tachycardia and sinus tachycardia are reactive and likely secondary to his anemia, large pleural effusion and fever. It is reassuring that PA has been ruled out. I have discussed this in detail with the patient and am making the following recommendations, which he is in agreement. RECOMMENDATIONS: 1. It is reasonable to trial him on Toprol XL 25 mg once a day, but again his sinus tachycardia and PSVT appears to be reactive to his anemia, pleural effusion and fever. He can be discharged from a cardiac heart rate standpoint as long as his heart rate is not persistently greater than 120 beats per minute and he should follow up with myself in 4 to 6 weeks. I will make arrangement at that time for cardiac chemical nuclear rest/stress scan for ischemic evaluation as the patient confirms he cannot exercise strenuously safely on an exercise treadmill. 2. 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 3. I agree with discontinuation of cigarettes. 4. Keep potassium 4 to 5 and check magnesium level and keep 2 to 2.5, given PSVT. Also recommend to check TSH. 5. Other management as per the hospitalist medicine and rheumatology service including regarding fhis ever. Dear Ms. China Bunn, many thanks for asking me to participate in the cardiovascular consultative care of Mr. Hutchinson. The patient will follow up with myself in 4 to 6 weeks following discharge as described above.Please do hesitate to contact me if you have any questions or concerns regarding the patient's cardiac consultative care. [id number]/[facility] #: [id number] TIEN
[2018-10-08] MEDS: metroNIDAZOLE IV 500 MG/100ML* 500 MG/100 ML BAG IVPB SCH ×2 (05:20→13:12)
[2018-10-08 05:38] LABS: ABS Lymphocytes 0.6 10^3/ul (1.0-4.8); ABS Monocytes 1.1 10^3/ul (0-0.8); ABS Neutrophils 8.4 10^3/ul (1.5-7.7); Eosinophil % 0.3 %; Hematocrit 28 % (42-52); Hemoglobin 9.8 g/dL (14.0-18.0); Lymphocyte % 6.1 %; Mean Corpuscular HGB Conc 35 g/dL (31-36); Mean Corpuscular Hemoglobin 32 pg (27-31); Mean Corpuscular Volume 91 fL (80-94); Mean Platelet Volume 7.5 fL (7.4-10.4); Nucleated Red Blood Cells % 0.1; Platelet Count 408 10^3/uL (150-450); Red Blood Count 3.09 10^6 /uL (4.18-5.48); Red Cell Distribution Width 14 % (10-15); White Blood Count 10.2 10^3/uL (3.5-10.8)
[2018-10-08] MEDS: Nicotine PATCH 21 MG/24 HR* PATCH TRANSDERM SCH (08:14)
[2018-10-08] MEDS: Folic Acid TAB* 1 MG PO SCH (08:14)
[2018-10-08 08:50] LABS: Calcium 8.3 mg/dL (8.6-10.3)
[2018-10-08 08:56] LABS: BUN/Creatinine Ratio 14.6 (8-20); EGFR African American 215.1 (>60); EGFR Non-African American 177.8 (>60)
[2018-10-08 09:19] LABS: Potassium 4.1 mmol/L (3.5-5.0)
[2018-10-08 09:42] LABS: TSH (Thyroid Stimulating Horm) 0.95 mcIU/mL (0.34-5.60)
[2018-10-08] MEDS: Metoprolol Succinate XL TAB* 25 MG PO SCH (09:59)
[2018-10-08] MEDS: cefTRIAXone(*) 1 GM in NS 0.9% 50 ML* 50 ML IVPB SCH (16:50)
--- NOTE | 2018-10-08 17:11 | PN ---
Subjective Date of Service: 10/08/18 Interval History: Mr. Hutchinson is feeling better today. His SOB is resolved. He denies cough. No CP or N/V. He has not had a BM today. He reports feeling significantly better as soon as pleural fluid was removed. No concerns from nursing. Family History: Unchanged from Admission Social History: Unchanged from Admission Past Medical History: Unchanged from Admission Objective Active Medications: Acetaminophen (Tylenol Tab*) 650 mg PO Q6H PRN fever, mild pain Albuterol/Ipratropium (Duoneb (Albuterol 2.5 Mg/Ipratropium 0.5 Mg)) 1 neb INH [id number] AWAKE PRN sob/wheexing Enoxaparin Sodium (Lovenox(*)) 40 mg SUBCUT Q24H [facility] Folic Acid (Folvite Tab*) 1 mg PO DAILY [facility] Ceftriaxone Sodium 1 gm/ (Sodium Chloride) 50 mls @ 200 mls/hr IVPB Q24H [facility] Metronidazole/Sodium Chloride (Flagyl 500 Mg Ivpb*) 500 mg in 100 mls @ 100 mls /hr IVPB Q8H [facility] Metoprolol Succinate (Toprol Xl Tab*) 25 mg PO DAILY [facility] Nicotine (Nicotine Patch 21 Mg/24 Hr*) 1 patch TRANSDERM DAILY [facility] Vital Signs - 8 hr 10/08/18 10/08/18 10/08/18 09:09 11:39 15:06 Temperature 98.4 F 98.3 F 99 F Pulse Rate 113 111 109 Respiratory 22 18 16 Rate Blood Pressure 112/77 128/76 113/70 (mmHg) O2 Sat by Pulse 97 96 98 Oximetry Oxygen Devices in Use Now: None Appearance: Middle-aged male sitting in bed in NAD Eyes: No Scleral Icterus Ears/Nose/Mouth/Throat: Mucous Membranes Moist Neck: NL Appearance and Movements; NL JVP, Trachea Midline Respiratory: Symmetrical Chest Expansion and Respiratory Effort, Clear to Auscultation Cardiovascular: NL Sounds; No Murmurs; No JVD Abdominal: NL Sounds; No Tenderness; No Distention Extremities: No Edema Neurological: Alert and Oriented x 3 Lines/Tubes/Other Access: Clean, Dry and Intact Peripheral IV Nutrition: Taking PO's Result Diagrams: 10/08/18 05:12 10/08/18 08:04 Assess/Plan/Problems-Billing Assessment: Mr. Hutchinson is a 58 yo M with PMH of uncontrolled RA; who presented to ED with shortness of breath and chest pain and was found to have a large pleural effusion. - Patient Problems (1) Pleural effusion Code(s): J90 - PLEURAL EFFUSION, NOT ELSEWHERE CLASSIFIED Comment: - Thoracentesis with 1300mL pleural fluid drained - Cytology consistent with inflammation; other studies still pending - Differentials include parapneumonic vs rheumatoid effusion - Continue ceftriaxone; start prednisone; d/c Flagyl (2) Tachycardia Code(s): R00.0 - TACHYCARDIA, UNSPECIFIED Comment: - Repeat EKG appears to show multifocal atrial tachycardia which would be consistent with pulmonary disease - Will need outpatient f/u with Cardiology - Continue metoprolol (3) Anemia Code(s): D64.9 - ANEMIA, UNSPECIFIED Comment: - Stable - Suspect anemia of chronic disease - Check stool occult (4) Sepsis Comment: - Resolved - Met sepsis on admission with leukocytosis, tachycardia; pleural source - Unclear if this is actually insurance account representative of sepsis - Blood cultures negative to date - Plan as above (5) Chest pain Code(s): R07.9 - CHEST PAIN, UNSPECIFIED Comment: - Resolved - Secondary to pleural effusion (6) Rheumatoid arthritis Code(s): M06.9 - RHEUMATOID ARTHRITIS, UNSPECIFIED Comment: - Uncontrolled on current medications - Hold methotrexate and Xeljanz (7) Weight loss Comment: - Patient reports unintentional weight loss, suspect secondary to uncontrolled RA - Has outpatient follow up for colonoscopy; defer to PCP (8) DVT prophylaxis Code(s): Z29.9 - ENCOUNTER FOR PROPHYLACTIC MEASURES, UNSPECIFIED Comment: - Lovenox (9) Full code status Code(s): Z78.9 - OTHER SPECIFIED HEALTH STATUS Comment: Status and Disposition: Inpatient. Discharge home when medically stable, likely tomorrow. Attending: Nathalie Saez
[2018-10-08] MEDS: Nicotine Patch Removal NOTE PATCH OFF SCH (20:01)
[2018-10-08] MEDS: Enoxaparin(*) 40 MG/0.4 ML SYR SUBCUT SCH (20:01)
[2018-10-09 05:42] LABS: ABS Basophils 0.1 10^3/ul (0-0.2); ABS Eosinophils 0.1 10^3/ul (0-0.6); ABS Lymphocytes 0.8 10^3/ul (1.0-4.8); ABS Monocytes 1.1 10^3/ul (0-0.8); ABS Neutrophils 7.7 10^3/ul (1.5-7.7); Eosinophil % 1.1 %; Hematocrit 28 % (42-52); Hemoglobin 9.5 g/dL (14.0-18.0); Lymphocyte % 7.8 %; Mean Corpuscular HGB Conc 34 g/dL (31-36); Mean Corpuscular Hemoglobin 31 pg (27-31); Mean Corpuscular Volume 91 fL (80-94); Mean Platelet Volume 7.5 fL (7.4-10.4); Platelet Count 427 10^3/uL (150-450); Red Blood Count 3.11 10^6 /uL (4.18-5.48); Red Cell Distribution Width 14 % (10-15); White Blood Count 9.7 10^3/uL (3.5-10.8)
[2018-10-09 06:00] LABS: BUN/Creatinine Ratio 15.4 (8-20); EGFR African American 196.2 (>60); EGFR Non-African American 162.1 (>60); Potassium 3.7 mmol/L (3.5-5.0)
[2018-10-09] MEDS: Folic Acid TAB* 1 MG PO SCH (08:06)
[2018-10-09] MEDS: Metoprolol Succinate XL TAB* 25 MG PO SCH (08:07)
[2018-10-09] MEDS: Nicotine PATCH 21 MG/24 HR* PATCH TRANSDERM SCH (08:07)
[2018-10-09] MEDS ORDERED: predniSONE TAB* 10 MG PO SCH (09:00)
[2018-10-09 11:21] VITALS: BP 115/66
--- NOTE | 2018-10-09 22:21 | DS ---
CC: [facility]; Dr. Narendra Gaytan; Dr. Korey Garvin * DISCHARGE SUMMARY: DATE OF ADMISSION: 10/05/18 DATE OF DISCHARGE: 10/09/18 PRIMARY CARE PROVIDER: [facility]. ATTENDING PHYSICIAN: Dr. Joselito Hoskins * (dictated by Ximena Ramos NP). PRIMARY DIAGNOSES: 1. Pleural effusion, rheumatoid versus parapneumonic. 2. Multifocal atrial tachycardia. 3. Anemia of chronic disease. 4. Sepsis. SECONDARY DIAGNOSES: 1. Rheumatoid arthritis, uncontrolled. 2. Weight loss. STUDIES WHITE IN THE HOSPITAL: 1. EKG on 10/05/18 shows sinus tachycardia with a rate of 102, slightly irregular. Minimal ST elevation in V2 and V3. 2. Chest x-ray on 10/05/18 reads as moderate left pleural effusion with adjacent airspace opacification (consolidation versus passive atelectasis). This could be further evaluated by chest CT to rule out parapneumonic effusion. 3. Chest CT on 10/05/18 reads as moderate left pleural effusion with mild compressive atelectasis in the left lower lobe and mild adjacent infiltrate or atelectasis in the left lower lobe. Minimal debris in the right mainstem bronchus. Otherwise, negative CT chest. 4. Chest x-ray on 10/07/18 reads as left pleural effusion. 5. Transthoracic echocardiogram on 10/07/18, reads as the left ventricular cavity size is normal, wall thickness is normal, systolic function is mildly reduced. The visually estimated ejection fraction of 40% to 45%. The calculated ejection fraction is 45%. There is mild global hypokinesis. Normal cardiac chamber sizes. Functionally benign heart valves. There is no prior echocardiogram to compare with at this time. 6. EKG on 10/08/18 shows multifocal atrial tachycardia with a rate of 112, QTC 449. No significant ST changes. PROCEDURES WHILE IN THE HOSPITAL: Ultrasound-guided thoracentesis on 10/06/18. HISTORY OF PRESENT ILLNESS AND HOSPITAL COURSE: Mr. Hutchinson is a 58-year-old male with a past medical history of uncontrolled rheumatoid arthritis, who presented to the emergency room on 10/05/18, with complaints of chest pain. Please see the history and physical by ANTONIETTA Lawson for a complete summary of the events leading up to this hospitalization. In short, the patient reported chest pain occurring on the day of admission, worse with inhalation. He did note increased fatigue recently. In the emergency room, the patient was noted to meet SIRS criteria with tachy-cardia, tachypnea, and leukocytosis. Imaging was completed as noted above and there was concern for pneumonia with parapneumonic effusion. The patient was admitted by the hospitalist service. He was placed on ceftriaxone and azithromycin. Leukocytosis resolved. Vital signs also resolved except for the tachycardia. The patient was noted to be consistently tachycardic on telemetry. The patient did undergo an ultrasound- guided thoracentesis on 10/06/18, at which time approximately 1-1/2 L of straw- colored fluid was drained. The fluid was sent to the lab for analysis. Cytology report reveals that the fluid is negative for malignant cells and is [employer] of acute inflammation. The pleural fluid did show an elevated white blood count of nearly 5000. This was neutrophil predominant. LDH was elevated at 4000. Glucose was noted to be less than 2. At this point, I have added on labs to check the fluid for pH, cholesterol, and protein, though they are still pending at this time as they are sent out. The patient did note significant improvement in shortness of breath immediately after the effusion was drained. Because of his consistent tachycardia and mildly reduced ejection fraction, he was seen by Dr. Gaytan with Cardiology on 10/07/18. At which point , he recommended trialing the patient on metoprolol succinate though felt as though his tachycardia was likely secondary to pleural effusion. He recommended avoiding NSAIDs and maintaining electrolytes within normal range. As of today, the patient reports that his shortness of breath has resolved completely. He has been up and ambulating without difficulty. The patient does note to me that his rheumatoid arthritis is poorly controlled on his current medications though these are the only medications that his insurance will cover at this point. He does note that he started feeling poorly approximately 8 weeks ago and that became progressively worse, ultimately leading him to present to the emergency room. At this point, it remains unclear whether this pleural effusion is related to his rheumatoid arthritis or a parapneumonic effusion. I suspect that this is rheumatoid related due to the elevated LDH and low glucose in the pleural fluid. I also sent out lab to check for rheumatoid factor in the pleural fluid, and this will ultimately give us the most information. I think that pneumonia is unlikely as the patient's symptoms have been present for approximately 8 weeks and he likely would have been much thicker on presentation had he had a pneumonia for 8 weeks. Again, the imaging does show this questionable infiltrate in the left lower lobe though this may just represent atelectasis, which I think is certainly possible due to the amount of fluid that was drained from the site. The patient understands that he will need close followup to ensure resolution of this effusion. The patient was noted to be anemic during this hospitalization. On the day of discharge, H and H is 9.5 and 28. Iron studies were normal, so this represents anemia of chronic disease secondary to rheumatoid arthritis. Additionally, the patient has been noted to have multifocal atrial tachycardia during this hospitalization, which certainly correlates with his currently compromised respiratory status and I would hope that this would improve with resolution of the effusion. PHYSICAL EXAMINATION: On exam today, he has no focal neurological deficits. His heart has a regular rate and rhythm without murmurs, rubs or gallops. I will note that his heart rate has come down and is consistently in the 90s to low 100s at this point. Lungs are clear to auscultation. Left lower lobe is slightly diminished. He is saturating well on room air and offers no complaints. Mr. Hutchinson is stable for discharge today. Vital signs are as follows: Temp 97.7, heart rate 107, respiratory rate 20, oxygen saturation 98% on room air, and blood pressure 115/66. DISCHARGE MEDICATIONS: New medications: 1. Acetaminophen 650 mg p.o. q.6 hours p.r.n. fever, pain. 2. Cefdinir 300 mg p.o. b.i.d. x3 days. 3. Metoprolol succinate 25 mg p.o. daily. 4. Prednisone 10 mg p.o. daily. Continued medications: 1. Folic acid 1 mg p.o. daily. 2. Methotrexate 15 mg p.o. weekly. Discontinued medications: 1. Xeljanz. 2. Ibuprofen. DISCHARGE PLAN: Mr. Hutchinson will be discharged home. Activity will be as tolerated. Diet will be regular as tolerated. Medications are noted above. The patient has completed 4 days of antibiotic therapy while here in the hospital and I will have him complete another 3 days of cefdinir at home to complete a total of 7 days of antibiotic therapy for a possible pneumonia, although again I think this is less likely. I have placed the patient on low dose prednisone as this would be treatment for a rheumatoid related effusion. I did send in a few weeks worth of the prednisone though indicated to the patient that he will need to see Dr. Garvin as soon as possible, so that Dr. Garvin can determine any further treatment. At this point, I have taken the patient off his Xeljanz as he should not take the Xeljanz and prednisone together. I have placed the patient on metoprolol succinate per instructions from Cardiology. The patient has been instructed to stop taking all NSAIDs due to the negative cardiogenic effects and I have advised the patient that he may take up to 4000 mg daily of acetaminophen. He has been provided with a work release to tentatively return to work next 10/17/18. The patient does not have a PCP and is agreeable to following up with a [facility]. So, I have provided him with information to schedule an appointment. The patient would certainly benefit from having a colonoscopy and/or endoscopy as he reportedly is overdue for colonoscopy and has been taking extremely high doses of NSAIDs for quite some time. He will need to follow up with Dr. Garvin as soon as possible and he believed that he would be able to get an appointment in the next 1 to 2 weeks. The prednisone therapy will need to be reevaluated at that point. He will also need to follow up with Dr. Gaytan in 4 to 6 weeks for this newly noted cardiomyopathy and tachycardia. The patient has been advised to return to the emergency room or nearest hospital for any worsening symptoms, shortness of breath, lightheadedness, dizziness, chest discomfort, high fevers, chills, night sweats, loss of consciousness, or any other worrisome signs or symptoms. DISCHARGE CONDITION: Stable. DISCHARGE DISPOSITION: Home. This is a summarized report of a complex medical history and hospital stay. For further details, please see the entire medical record. TIME SPENT: Approximately 55 minutes was spent on this discharge. XIMENA RAMOS NP [id number]/[facility] #: [id number] MTDCassandra
[2018-10-10 10:57] LABS: QuantiferonTb Gold Plus Result Indeterminate (Negative); TB1 Ag minus Nil Result 0.01 IU/mL; TB2 Ag minus Nil Result -0.02 IU/mL
== END 2018-10-09 11:53 | disposition home or self-care (01) | DRG 720 ==
LOC: ED 15:09 → MEDTELE 21:45
PROVIDERS: ADMIT Internal Medicine; ATTEND Internal Medicine
PROC: 0W9B3ZZ Drainage of Left Pleural Cavity, Percutaneous Approach (ICD-10-PCS; principal; 2018-10-06)
DX: A41.9 Sepsis, unspecified organism (principal); J90 Pleural effusion, not elsewhere classified; I47.1 Supraventricular tachycardia; J98.11 Atelectasis; D63.8 Anemia in other chronic diseases classified elsewhere; M06.9 Rheumatoid arthritis, unspecified; F17.210 Nicotine dependence, cigarettes, uncomplicated; F12.90 Cannabis use, unspecified, uncomplicated; R63.4 Abnormal weight loss; Z68.20 Body mass index [BMI] 20.0-20.9, adult; Z79.1 Long term (current) use of non-steroidal anti-inflammatories (NSAID); Z79.899 Other long term (current) drug therapy; Z82.49 Family history of ischemic heart disease and other diseases of the circulatory system; Z82.3 Family history of stroke; Z80.0 Family history of malignant neoplasm of digestive organs
CPT/HCPCS: 32555; 36415; 71045; 71260; 80048; 80053; 81003; 82247; 82248; 82272; 82607; 82728; 82746; 82945; 83010; 83540; 83550; 83605; 83615; 83735; 83986; 84157; 84311; 84443; 84484; 85025; 85045; 85610; 86480; 87040; 87070; 87205; 87899; 88112; 89051; 93005; 93306; 99284; A9270-GY; C8929; J0456; J0696; J1650; J3490; J7512; Q9967

== ENCOUNTER 2019-05-10 12:29 | Observation (INO) | payer OTHER ==
[~2019-05-10 12:29] MED LIST: Buffered Lidocaine 1% SYRIN* 1 ML/SYRINGE INTRADERM ONE; Famotidine IV* 10 MG/ML 2 ML (20 mg) IV ONE; Lactated Ringers 1000 ML Bag* 1,000 ML IV SCH
[2019-05-10] MEDS ORDERED: Buffered Lidocaine 1% SYRIN* 1 ML/SYRINGE INTRADERM ONE (13:06)
[2019-05-10] MEDS ORDERED: ceFAZolin 2 GM in NS PREMIX(*) 2 GM/100 ML BAG IVPB ONE (13:06)
[2019-05-10] MEDS ORDERED: Famotidine IV* 10 MG/ML 2 ML (20 mg) ONE (13:06)
[2019-05-10] MEDS ORDERED: KETAMINE HCL* 50 MG/ML 10 ML VIAL ONE (15:01)
[2019-05-10] MEDS ORDERED: fentaNYL* 50 MCG/ML 2 ML VIAL (100 MCG VIAL) ONE (15:01)
[2019-05-10] MEDS ORDERED: Propofol* 10 MG/ML 20 ML BTL ONE (15:01)
[2019-05-10] MEDS ORDERED: Midazolam* 1 MG/ML 5 ML VIAL (5 MG) ONE (15:01)
[2019-05-10] MEDS ORDERED: Dexamethasone IV* 4 MG/ML 1 ML (4 MG) ONE (15:01)
[2019-05-10] MEDS ORDERED: Lidocaine 2% PF * 5 ML VIAL ONE (15:01)
[2019-05-10] MEDS ORDERED: Ondansetron INJ* 2 MG/ML VIAL ONE (15:01)
[2019-05-10] MEDS ORDERED: Bupivacaine 0.5% W/EPI SDV* 10 ML VIAL INJ ONE (16:00)
[2019-05-10] MEDS ORDERED: Lidocaine 1% INJ* 10 MG/ML 30 ML SDV ONE (16:01)
[2019-05-10] MEDS ORDERED: Phenylephrine 10 MG/ML VIAL* 1 ML VIAL ONE (16:05)
[2019-05-10] MEDS ORDERED: EPHEDrine (Pressors)* 50 MG/ML VIAL ONE (16:41)
[2019-05-10] MEDS ORDERED: HYDROmorphone INJ1* 1 MG/ML SYRINGE ONE (17:27)
[2019-05-10] MEDS ORDERED: Cisatracurium* 2 MG/ML MDV 5 ML ONE (17:46)
[2019-05-10] MEDS ORDERED: DiMENhydriNATE IV* 50 MG/ML VIAL IV PUSH PRN (18:05)
[2019-05-10] MEDS ORDERED: fentaNYL* 50 MCG/ML 2 ML VIAL (100 MCG VIAL) IV PRN (18:05)
[2019-05-10] MEDS ORDERED: Naloxone* 0.4 MG/ML 1 ML VIAL IV PRN (18:05)
[2019-05-10] MEDS ORDERED: Neostigmine Methylsulfate* 1 MG/ML 10 ML VIAL (1 mg/ml) ONE (18:13)
[2019-05-10] MEDS ORDERED: Glycopyrrolate IV* 0.2 MG/ML 1 ML VIAL ONE (18:13)
[2019-05-10] MEDS ORDERED: Acetaminophen TAB* 325 MG PO PRN (18:28)
[2019-05-10] MEDS ORDERED: Ibuprofen TAB* 600 MG PO PRN (18:28)
--- NOTE | 2019-05-10 18:28 | BRIEFOPN ---
Brief Operative/Procedure Note - Operation Details Pre-Op Diagnosis: Gastric cancer Post-Op Diagnosis: Gastric cancer Procedures: Powerport placement and open feeding jejunostomy placement Surgeon(s)/Proceduralists: Dr. Mason. Assist: ANTONIETTA Segovia Anesthesia: GETA Estimated Blood Loss: <25cc Findings: As above Specimen(s)/Culture(s) Description: None Complications: None
[2019-05-10] MEDS: NS 0.9% 1000 ML** 1,000 ML IV SCH (20:52)
[2019-05-10] MEDS: HYDROmorphone INJ* 0.5 MG/0.5 ML SYRINGE IV SLOW PU PRN (23:46)
[2019-05-11 00:06] LABS: ABS Lymphocytes 0.3 10^3/ul (1.0-4.8); ABS Monocytes 0.9 10^3/ul (0-0.8); ABS Neutrophils 11.5 10^3/ul (1.5-7.7); Hematocrit 39 % (42-52); Hemoglobin 12.5 g/dL (14.0-18.0); Mean Corpuscular HGB Conc 33 g/dL (31-36); Mean Corpuscular Hemoglobin 28 pg (27-31); Mean Corpuscular Volume 87 fL (80-94); Mean Platelet Volume 8.4 fL (7.4-10.4); Platelet Count 227 10^3/uL (150-450); Red Blood Count 4.45 10^6 /uL (4.18-5.48); Red Cell Distribution Width 28 % (10-15); White Blood Count 12.6 10^3/uL (3.5-10.8)
[2019-05-11 00:23] LABS: EGFR African American 124.3 (>60); EGFR Non-African American 102.7 (>60); Magnesium 1.7 mg/dL (1.9-2.7)
[2019-05-11 00:24] LABS: Polychromasia 1+
[2019-05-11] MEDS: ceFAZolin 1 GM ADVAN(*) 1 GM in NS 0.9% 50 ML* 50 ML IVPB SCH ×2 (01:03→08:42)
--- NOTE | 2019-05-11 02:53 | OP ---
CC: [facility]; Primary Care Doctor; Dr. To Silva * DATE OF OPERATION: 05/10/19 - ROOM #333 DATE OF : 56 SURGEON: Shahid Mason MD FORENSIC ECONOMIST: ANTONIETTA Triana ANESTHESIOLOGIST: Dr. Holloway. ANESTHESIA: General anesthesia. PRE-OP DIAGNOSIS: Gastric cancer. POST-OP DIAGNOSIS: Gastric cancer. OPERATIVE PROCEDURE: Insertion of PowerPort and open jejunostomy tube placement. INDICATIONS: The patient was identified in the preoperative area. I discussed the case with him, again went over the risks, benefits, and alternatives of PowerPort placement as well as mini laparotomy. The patient signed consent. ESTIMATED BLOOD LOSS: Minimal blood loss. FLUIDS: Minimal crystalloid fluid given. Please see anesthesia report for exact amounts. SPECIMEN: None. COMPLICATIONS: None. TUBIN-[place] red rubber catheter in the jejunum. DESCRIPTION OF PROCEDURE: He was marked appropriately, was taken to the operating room, placed on the operating room table in the supine position. Preoperative antibiotics were given. Sequential devices were placed on bilateral lower extremities. General anesthesia was induced. LMA inserted and the patient's abdomen was clipped of hair as well as his upper chest and the right chest was prepped and draped in the standard surgical fashion. A time- out was performed. The right subclavian vein was accessed and wire inserted under fluoroscopy, ensured to be in the appropriate manner in the superior vena cava. The incision was made below the wire and a pocket was made for the PowerPort. Next, the wire was brought in through this incision and the vein was dilated first with the dilator and the split-away catheter. We then made an attempt to put the tubing through the split- away catheter, but it appeared kinked and it was exchanged for a new one. With the new one in place, the 8-[place] tubing was inserted with ease into the superior vena cava. The split-away catheter removed. The tubing was cut to size and attached to the pre-flushed PowerPort along with the hub and sutured into the pocket with 0 Prolene sutures. The lateral and medial aspect of the wound was irrigated and reapproximated with 3- 0 Vicryl followed by 4-0 Monocryl subcuticular sutures. Steri-Strips and sterile dressing were applied. The patient was prepped at the abdomen and then redraped. Additional time-out was performed. A mini midline incision was made, starting at the umbilicus and going inferiorly. This was deepened down to the anterior fascia, which was incised and entry into the abdominal cavity was made. There was no free fluid. A small portion of the small intestine was picked up when we made our first opening into the peritoneum, but I examined this and saw no evidence of injury. The fascial incision was then extended equivalent to the skin incision and we entered into the abdomen. There was a small bit of omentum; it was reflected superiorly. The superior aspect of the abdomen was frozen with significant disease both in the upper abdomen, what appeared to be retroperitoneal in that upper abdominal space. Next, the small bowel was identified. We tried to run this proximally, but it was too difficult to identify. The patient was then attempted to be additionally relaxed, but this led to concern by the anesthesiologist and the LMA was converted to an ET tube. Once ET tube was inserted, we relaxed the patient more. The bowel was eviscerated. We identified the cecum along with the appendix and the terminal ileum. We ran the bowel retrograde and we identified what appeared to be the ligament of Treitz as it extended under a stuck transverse colon as it adhered to the large gastric site. Once I was sure I had the proximal bowel, we counted off approximately 20 cm. A pursestring suture was made with a 3-0 silk and enterotomy was made. An 8-[place] red rubber tubing that was brought in through separate stab incision at the left abdomen was then inserted. There was no leakage. We placed the tubing distally and tied the pursestring suture. We then Witzel'd with additional 3-0 silk sutures and then brought this up to the anterior abdominal wall and sutured with additional 3-0 Vicryl sutures. Tubing was sutured to the skin with an 0 Prolene suture. Review of the abdomen showed no evidence of injury. The fascial edges were brought together with a running #1 loop PDS suture, taking care not to enter to the jejunostomy. We started inferiorly and tied it at the superior aspect. The wound was irrigated and reapproximated with skin david. Sterile dressing was applied. The patient tolerated the procedure well. [id number]/[facility] #: [id number] [facility]PITAL[facility]andra
[2019-05-11] MEDS: Heparin VIAL(*) 5000 UNITS/ML VIAL (FIVE THOUSAND) SUBCUT SCH ×2 (05:48→14:49)
[2019-05-11] MEDS: HYDROmorphone INJ* 0.5 MG/0.5 ML SYRINGE IV SLOW PU PRN ×4 (05:49→20:34)
[2019-05-11 09:37] LABS: ABS Lymphocytes 1.5 10^3/ul (1.0-4.8); ABS Monocytes 0.5 10^3/ul (0-0.8); ABS Neutrophils 12.3 10^3/ul (1.5-7.7); Hematocrit 39 % (42-52); Hemoglobin 12.7 g/dL (14.0-18.0); Lymphocyte % 10.7 %; Mean Corpuscular HGB Conc 33 g/dL (31-36); Mean Corpuscular Hemoglobin 28 pg (27-31); Mean Corpuscular Volume 85 fL (80-94); Mean Platelet Volume 8.8 fL (7.4-10.4); Platelet Count 269 10^3/uL (150-450); Red Blood Count 4.52 10^6 /uL (4.18-5.48); Red Cell Distribution Width 28 % (10-15); White Blood Count 14.4 10^3/uL (3.5-10.8)
[2019-05-11 09:56] LABS: BUN/Creatinine Ratio 13.2 (8-20); Calcium 8.5 mg/dL (8.6-10.3); EGFR African American 126.2 (>60); EGFR Non-African American 104.3 (>60); Magnesium 1.6 mg/dL (1.9-2.7); Potassium 4.3 mmol/L (3.5-5.0)
[2019-05-11] MEDS: NS 0.9% 1000 ML** 1,000 ML IV SCH (10:37)
[2019-05-11 10:38] LABS: Albumin 3.3 g/dL (3.2-5.2); Albumin/Globulin Ratio 1.2 (1-3); Globulin 2.8 g/dL (2-4); Total Bilirubin 3.2 mg/dL (0.2-1.0); Total Protein 6.1 g/dL (6.4-8.9)
--- NOTE | 2019-05-11 10:39 | PN ---
Progress Note - Progress Note Date of Service: 05/11/19 Note: S: Reports he is feeling alright with pain being fairly well controlled. No flatus yet; states that he has not passed flatus normally, if at all, since CA development. Last BM yesterday. No nausea, emesis, fever, chills, SOB. Tolerating ice chips. Ambulating. O: Vital Signs - 8 hr 05/11/19 05/11/19 05/11/19 02:45 04:24 05:49 Temperature 97.4 F Pulse Rate 80 Respiratory 16 16 Rate Blood Pressure 148/89 (mmHg) O2 Sat by Pulse 98 99 Oximetry 05/11/19 05/11/19 05/11/19 06:49 07:47 07:59 Temperature 98 F Pulse Rate 95 Respiratory 16 18 11 Rate Blood Pressure 148/90 (mmHg) O2 Sat by Pulse 96 Oximetry 05/11/19 10:37 Temperature Pulse Rate Respiratory 18 Rate Blood Pressure (mmHg) O2 Sat by Pulse Oximetry Intake and Output Last 24 Hours 05/09/19 05/10/19 05/11/19 05/12/19 06:59 06:59 06:59 06:59 Intake Total 100 Output Total 0 400 Balance 100 -400 Weight 121 lb 6.4 oz Intake: IV Fluids 100 NS 100ML, Cefazolin 2G 100 Oral 0 Output: Urine 0 400 Laboratory Last Values WBC 14.4 10^3/uL (3.5-10.8) H 05/11/19 09:25 RBC 4.52 10^6 /uL (4.18-5.48) 05/11/19 09:25 Hgb 12.7 g/dL (14.0-18.0) L 05/11/19 09:25 Hct 39 % (42-52) L 05/11/19 09:25 MCV 85 fL (80-94) 05/11/19 09:25 MCH 28 pg (27-31) 05/11/19 09:25 MCHC 33 g/dL (31-36) 05/11/19 09:25 RDW 28 % (10-15) H 05/11/19 09:25 Plt Count 269 10^3/uL (150-450) 05/11/19 09:25 MPV 8.8 fL (7.4-10.4) 05/11/19 09:25 Neut % (Auto) 85.5 % 05/11/19 09:25 Lymph % (Auto) 10.7 % 05/11/19 09:25 [place] % (Auto) 3.5 % 05/11/19 09:25 Eos % (Auto) 0.0 % 05/11/19 09:25 Baso % (Auto) 0.3 % 05/11/19 09:25 Absolute Neuts (auto) 12.3 10^3/ul (1.5-7.7) H 05/11/19 09:25 Absolute Lymphs (auto) 1.5 10^3/ul (1.0-4.8) 05/11/19 09:25 Absolute Monos (auto) 0.5 10^3/ul (0-0.8) 05/11/19 09:25 Absolute Eos (auto) 0.0 10^3/ul (0-0.6) 05/11/19 09:25 Absolute Basos (auto) 0.0 10^3/ul (0-0.2) 05/11/19 09:25 Absolute Nucleated RBC 0.0 10^3/ul 05/11/19 09:25 Nucleated RBC % 0.0 05/11/19 09:25 Polychromasia 1+ 05/11/19 00:00 Anisocytosis 2+ 05/11/19 00:00 Sodium 138 mmol/L (135-145) 05/11/19 09:25 Potassium 4.3 mmol/L (3.5-5.0) 05/11/19 09:25 Chloride 103 mmol/L (101-111) 05/11/19 09:25 Carbon Dioxide 26 mmol/L (22-32) 05/11/19 09:25 Anion Gap 9 mmol/L (2-11) 05/11/19 09:25 BUN 10 mg/dL (6-24) 05/11/19 09:25 Creatinine 0.76 mg/dL (0.67-1.17) 05/11/19 09:25 Est GFR ( Amer) 126.2 (>60) 05/11/19 09:25 Est GFR (Non-Af Amer) 104.3 (>60) 05/11/19 09:25 BUN/Creatinine Ratio 13.2 (8-20) 02/13/20 09:25 Glucose 118 mg/dL (70-100) H 05/11/19 09:25 Calcium 8.5 mg/dL (8.6-10.3) L 05/11/19 09:25 Magnesium 1.6 mg/dL (1.9-2.7) L 05/11/19 09:25 Total Bilirubin 3.20 mg/dL (0.2-1.0) H 05/11/19 09:25 Direct Bilirubin 2.20 mg/dL (0.03-0.18) H 05/11/19 09:25 Indirect Bilirubin 1.0 mg/dL (0.3-1.0) 05/11/19 09:25 AST 112 U/L (13-39) H 05/11/19 09:25 ALT 196 U/L (7-52) H 05/11/19 09:25 Alkaline Phosphatase 899 U/L (34-104) H 05/11/19 09:25 Total Protein 6.1 g/dL (6.4-8.9) L 05/11/19 09:25 Albumin 3.3 g/dL (3.2-5.2) 05/11/19 09:25 Globulin 2.8 g/dL (2-4) 05/11/19 09:25 Albumin/Globulin Ratio 1.2 (1-3) 05/11/19 09:25 PEX: General: Alert, in NAD or discomfort. Integumentary: No rashes, jaundice, petechia. HEENT: PERRLA. Oropharynx clear. Heart: RRR, no MRG. Lungs: CTAB, no WRR. ABD: BS present. Soft, nondistended. Mild tenderness around incisions. Powerport and tube dressings C/D/I, tube with empty irrigation syringe attached. Midline incision dressing with some blood, but not entirely saturated. Extremities: Calves soft and nontender. Distal pulses intact bilaterally. No edema. Assessment and plan: 59 yo M with diffuse gastric cancer S/P powerport and feeding jejunostomy procedure, POD#1. He is healing appropriately from procedure with pain well controlled. Continue ambulation, deep breathing, ice chips diet, heparin and SCDs. Will replete magnesium. He is getting a CT scan today and will have the irrigation syringe removed and the tube capped for easier mobility.
[2019-05-11] MEDS ORDERED: Magnesium Sulfate 2 GM IV* 2 GM/50 ML BAG IVPB ONE (11:00)
--- NOTE | 2019-05-11 11:31 | PN ---
Progress Note - Progress Note Date of Service: 05/11/19 SOAP: Subjective: []Feeling OK. No major changes since port and J-tube placement yesterday. Persistent gastritis/reflux issues but not worse. Urine very dark. Lower back pain, but history of strain, and not severe. Medications: Acetaminophen (Tylenol Tab*) 650 mg PO Q4H PRN PRN Reason: MILD PAIN or TEMP > 100.4 Heparin Sodium (Porcine) (Heparin Vial(*)) 5,000 units SUBCUT Q8HR [facility] Last Admin: 05/11/19 05:48 Dose: 5,000 units Hydromorphone HCl (Dilaudid Inj*) 0.5 mg IV SLOW PU Q1H PRN PRN Reason: PAIN - SEVERE Last Admin: 05/11/19 10:37 Dose: 0.5 mg Sodium Chloride (Ns 0.9% 1000 Ml) 1,000 mls @ 75 mls/hr IV PER RATE [facility] Last Admin: 05/11/19 10:37 Dose: 75 mls/hr Magnesium Sulfate (Magnesium Sulfate 2 Gm Iv*) 2 gm in 50 mls @ 50 mls/hr IVPB ONCE ONE Stop: 05/11/19 11:59 Ibuprofen (Motrin Tab*) 600 mg PO Q8H PRN PRN Reason: moderate pain Metoclopramide HCl (Reglan Iv*) 10 mg IV Q6H PRN PRN Reason: NAUSEA/VOMITING Objective: [] Vital Signs Temp Pulse Resp BP Pulse Ox 98 F 95 18 148/90 96 05/11/19 07:59 05/11/19 07:59 05/11/19 10:37 05/11/19 07:59 05/11/19 07:59 A&Ox3, EOMI, neuro grossly non-focal SONI, no obvious weakness or deformities Frail appearing HRR, S1S2, no murmur noted LS dim. bilat., no wheeze or rhonchi +BS, thin, liver edge felt Dressings in place Laboratory Results - last 24 hr 05/11/19 05/11/19 05/11/19 00:00 00:00 09:25 WBC 12.6 H 14.4 H RBC 4.45 4.52 Hgb 12.5 L 12.7 L Hct 39 L 39 L MCV 87 85 MCH 28 28 MCHC 33 33 RDW 28 H 28 H Plt Count 227 269 MPV 8.4 8.8 Neut % (Auto) 90.9 85.5 Lymph % (Auto) 2.0 10.7 [place] % (Auto) 7.0 3.5 Eos % (Auto) 0.0 0.0 Baso % (Auto) 0.1 0.3 Absolute Neuts (auto) 11.5 H 12.3 H Absolute Lymphs (auto) 0.3 L 1.5 Absolute Monos (auto) 0.9 H 0.5 Absolute Eos (auto) 0.0 0.0 Absolute Basos (auto) 0.0 0.0 Absolute Nucleated RBC 0.0 0.0 Nucleated RBC % 0.0 0.0 Polychromasia 1+ Anisocytosis 2+ Sodium 137 Potassium 4.0 Chloride 102 Carbon Dioxide 28 Anion Gap 7 BUN 10 Creatinine 0.77 Est GFR ( Amer) 124.3 Est GFR (Non-Af Amer) 102.7 BUN/Creatinine Ratio 13.0 Glucose 138 H Calcium 9.0 Magnesium 1.7 L Total Bilirubin Direct Bilirubin Indirect Bilirubin AST ALT Alkaline Phosphatase Total Protein Albumin Globulin Albumin/Globulin Ratio 05/11/19 09:25 WBC RBC Hgb Hct MCV MCH MCHC RDW Plt Count MPV Neut % (Auto) Lymph % (Auto) [place] % (Auto) Eos % (Auto) Baso % (Auto) Absolute Neuts (auto) Absolute Lymphs (auto) Absolute Monos (auto) Absolute Eos (auto) Absolute Basos (auto) Absolute Nucleated RBC Nucleated RBC % Polychromasia Anisocytosis Sodium 138 Potassium 4.3 Chloride 103 Carbon Dioxide 26 Anion Gap 9 BUN 10 Creatinine 0.76 Est GFR ( Amer) 126.2 Est GFR (Non-Af Amer) 104.3 BUN/Creatinine Ratio 13.2 Glucose 118 H Calcium 8.5 L Magnesium 1.6 L Total Bilirubin 3.20 H Direct Bilirubin 2.20 H Indirect Bilirubin 1.0 AST 112 H ALT 196 H Alkaline Phosphatase 899 H Total Protein 6.1 L Albumin 3.3 Globulin 2.8 Albumin/Globulin Ratio 1.2 Assessment: []59 yo male recently diagnosed with locally advanced gastric cancer admitted post port and J-tube placement. Labs on the revealed new transaminitis and elevated bilirubin now further increased without clear cause. Plan: []1. s/p port and J-tube place: management per surgery 2. Transaminitis: add on amylase and lipase - STAT US RUQ and CT abd. with contrast 3. Repeat labs in AM Pt. to onc. service. Discussed with surgery.
[2019-05-11] MEDS ORDERED: Iohexol 300* (CONTRAST) 10 ML SDV IV ONE (13:30)
[2019-05-11] MEDS ORDERED: Zosyn per Pharmacy* NOTE FOLLOW UP SCH (15:00)
[2019-05-11] MEDS: Nicotine PATCH 21 MG/24 HR* PATCH TRANSDERM SCH (15:27)
[2019-05-11] MEDS ORDERED: Piperacillin/Tazobac ADVAN(*) 3.375 GM in NS 0.9% 100 ML* 100 ML IVPB ONE (15:30)
[2019-05-11] MEDS: Metoclopramide IV* 5 MG/ML 2 ML VIAL IV PRN (20:27)
[2019-05-11] MEDS: ZOSYN 3.375 GM Q8H per EXTENDED INFUSION IVPB SCH ×2 (20:30)
[2019-05-11] MEDS ORDERED: Nicotine Patch Removal NOTE PATCH OFF SCH (21:00)
[2019-05-12] MEDS: Heparin VIAL(*) 5000 UNITS/ML VIAL (FIVE THOUSAND) SUBCUT SCH ×3 (00:05→13:27)
[2019-05-12] MEDS: Metoclopramide IV* 5 MG/ML 2 ML VIAL IV PRN (03:51)
[2019-05-12] MEDS: ZOSYN 3.375 GM Q8H per EXTENDED INFUSION IVPB SCH ×4 (03:51→13:19)
[2019-05-12] MEDS: HYDROmorphone INJ* 0.5 MG/0.5 ML SYRINGE IV SLOW PU PRN ×5 (03:58→18:13)
[2019-05-12 05:52] LABS: Hematocrit 33 % (42-52); Hemoglobin 10.9 g/dL (14.0-18.0); Mean Corpuscular HGB Conc 33 g/dL (31-36); Mean Corpuscular Hemoglobin 28 pg (27-31); Mean Corpuscular Volume 84 fL (80-94); Mean Platelet Volume 8.8 fL (7.4-10.4); Platelet Count 208 10^3/uL (150-450); Red Blood Count 3.86 10^6 /uL (4.18-5.48); Red Cell Distribution Width 29 % (10-15); White Blood Count 7.5 10^3/uL (3.5-10.8)
[2019-05-12 06:02] LABS: Albumin 2.9 g/dL (3.2-5.2); Albumin/Globulin Ratio 1.1 (1-3); BUN/Creatinine Ratio 17.2 (8-20); Calcium 8.1 mg/dL (8.6-10.3); EGFR African American 153.8 (>60); EGFR Non-African American 127.1 (>60); Globulin 2.6 g/dL (2-4); Indirect Bilirubin 0.9 mg/dL (0.3-1.0); Potassium 3.8 mmol/L (3.5-5.0); Total Bilirubin 2.8 mg/dL (0.2-1.0); Total Protein 5.5 g/dL (6.4-8.9)
[2019-05-12 06:17] LABS: ABS Monocytes 0.5 10^3/ul (0-0.8); Eosinophil % 0.1 %; Lymphocyte % 13.9 %
--- NOTE | 2019-05-12 09:57 | PN ---
Progress Note - Progress Note Date of Service: 05/12/19 SOAP: Subjective: [POD #1 s/p port and Jtube placement. Reports some abd tenderness. Anxious for some clear liquids. Otherwise feeling ok. No n/v. ] Objective: [ Vital Signs: Temp Pulse Resp BP Pulse Ox 97.9 F 85 18 151/86 95 05/12/19 03:50 05/12/19 03:50 05/12/19 05:33 05/12/19 03:50 05/12/19 03:50 Heparin Sodium (Porcine) (Heparin Vial(*)) 5,000 units SUBCUT Q8HR [facility] Last Admin: 05/12/19 05:34 Dose: 5,000 units Hydromorphone HCl (Dilaudid Inj*) 0.5 mg IV SLOW PU Q1H PRN PRN Reason: PAIN - SEVERE Last Admin: 05/12/19 03:58 Dose: 0.5 mg Sodium Chloride (Ns 0.9% 1000 Ml) 1,000 mls @ 75 mls/hr IV PER RATE [facility] Last Admin: 05/11/19 10:37 Dose: 75 mls/hr Piperacillin Sod/Tazobactam (Sod 3.375 gm/ Sodium Chloride) 100 mls @ 25 mls/ hr IVPB Q8H [facility] Last Admin: 05/12/19 03:51 Dose: 25 mls/hr Ibuprofen (Motrin Tab*) 600 mg PO Q8H PRN PRN Reason: moderate pain Metoclopramide HCl (Reglan Iv*) 10 mg IV Q6H PRN PRN Reason: NAUSEA/VOMITING Last Admin: 05/12/19 03:51 Dose: 10 mg Nicotine (Nicotine Patch 21 Mg/24 Hr*) 1 patch TRANSDERM DAILY [facility] Last Admin: 05/11/19 15:27 Dose: Not Given Pharmacy Consult (Zosyn Per Pharmacy*) 1 note FOLLOW UP .ZOSYN PER PHARMACY [facility] Pharmacy Profile Note (Nicotine Patch Removal Note*) 1 note PATCH OFF 2100 [facility] Last Admin: 05/11/19 20:41 Dose: 1 note Laboratory Results - last 24 hr 05/11/19 05/12/19 05/12/19 09:25 05:15 05:15 WBC 7.5 RBC 3.86 L Hgb 10.9 L Hct 33 L MCV 84 MCH 28 MCHC 33 RDW 29 H Plt Count 208 MPV 8.8 Neut % (Auto) 79.2 Lymph % (Auto) 13.9 Barnes % (Auto) 6.5 Eos % (Auto) 0.1 Baso % (Auto) 0.3 Absolute Neuts (auto) 6.0 Absolute Lymphs (auto) 1.0 Absolute Monos (auto) 0.5 Absolute Eos (auto) 0.0 Absolute Basos (auto) 0.0 Absolute Nucleated RBC 0.0 Nucleated RBC % 0.0 Sodium 138 137 Potassium 4.3 3.8 Chloride 103 104 Carbon Dioxide 26 27 Anion Gap 9 6 BUN 10 11 Creatinine 0.76 0.64 L Est GFR ( Amer) 126.2 153.8 Est GFR (Non-Af Amer) 104.3 127.1 BUN/Creatinine Ratio 13.2 17.2 Glucose 118 H 102 H Calcium 8.5 L 8.1 L Magnesium 1.6 L 2.0 Total Bilirubin 3.20 H 2.80 H Direct Bilirubin 2.20 H 1.90 H Indirect Bilirubin 1.0 0.9 AST 112 H 66 H ALT 196 H 123 H Alkaline Phosphatase 899 H 688 H Total Protein 6.1 L 5.5 L Albumin 3.3 2.9 L Globulin 2.8 2.6 Albumin/Globulin Ratio 1.2 1.1 Amylase 425 H Lipase 453 H Exam: Gen: cachectic appearing 59 yo male in NAD HEENT: MMM CV: RRR, no m/r/g Resp: few rhonchi Abd: Jtube in place, scaphoid, mild TTP Ext: no edema] [Assessment: []59 yo male recently diagnosed with locally advanced gastric cancer admitted post port and J-tube placement. Labs on the revealed new transaminitis and elevated bilirubin now further increased. Imaging shows no clear hepatic disease but possible distal CBD stenosis v obstruction. Plan: [1. Biliary obstruction - gall bladder wall thickening with intrahepatic ductal dilitation - more distal CBD and pancreatic duct also appear dilated with perhaps some narrowing of the distal CBD suggesting a distal obstruction - noted improvement in transaminitis and Tbili following IVF and abx - remains afebrile, leukocytosis improved - no clinical evidence of acute biliary infection but clear objective evidence of obstruction - case reviewed with Dr Mason and Dr Holden - recommendation for ERCP with biliary stenting - EGD completed with Dr Welsh at [place] - will review case with Dr Welsh/Vignesh and plan an urgent outpatient evaluation 2. Nutrition - ok for Jtube use per surgery - plan to start tube feedings for nutritional support - plan 120 ml tid with goal of increasing to a total of 1680 ml per day (7 cans) 3. Gastric CA - locally advanced, no evidence of metastatic disease - goal to start neoadjuvant chemotherapy TARI but needs biliary decompression prior to starting Dispo: ok for discharge from oncology perspective, will plan close outpatient follow up]
[2019-05-12] MEDS: Nicotine PATCH 21 MG/24 HR* PATCH TRANSDERM SCH (10:06)
--- NOTE | 2019-05-12 10:40 | PN ---
Progress Note - Progress Note Date of Service: 05/12/19 SOAP: Subjective: Patient seen and examined. He feels a little better today than yesterday. Workup from yesterday reviewed, images including CT scans and MRI. Patient complains of incisional pain. No flatus. He is tolerated breakfast today and feels he has taken more today than the past few days. No shortness of breath or chest pain Objective: Temp Pulse Resp BP Pulse Ox 97.9 F 85 18 151/86 95 05/12/19 03:50 05/12/19 03:50 05/12/19 10:09 05/12/19 03:50 05/12/19 03:50 Intake & Output 05/11/19 05/12/19 05/12/19 22:59 06:59 14:59 Intake Total 202 250 Output Total 300 Balance -98 250 Weight 121 lb Alert and oriented 3, no apparent distress Membranes moist Lungs clear to auscultation bilaterally at the apices Abdomen: Soft, mild distention, tender at the incision site. Jejunostomy in place without erythema. Normoactive bowel sounds Extremities within normal limits Labs noted Assessment: Postoperative day two from a feeding jejunostomy and PowerPort placement. Patient is hemodynamically stable and although labs show elevated LFTs, the patient is not suffering with gallbladder disease. There may be an element of partial or intermittent obstruction of the common bile duct secondary to patient 's underlying disease. Plan: Advance diet Follow with nutrition. Possible DC home today with follow-up with oncology; there is concern for possibility of worsening bile duct disease and patient may benefit from ERCP and stenting. I will leave this to the oncology group. In the meantime I think following labs and clinical exam is not unreasonable. Sharon and incision site will be removed in the office next week
[2019-05-12] MEDS: NS 0.9% 1000 ML** 1,000 ML IV SCH (13:26)
--- NOTE | 2019-05-12 15:23 | DS ---
Admitted:05/10/2019 Discharged: 05/12/2019 Admission diagnosis: Gastric cancer Discharge diagnosis: Gastric cancer Procedure performed: Powerport placement and open feeding jejunostomy placement PEX General: Alert, in NAD. Integumentary: No rashes, jaundice, petechia. HEENT: PERRLA. Oropharynx clear. Heart: RRR, no MRG. Lungs: CTAB, no WRR. ABD: BS present. Soft, nondistended. Mild tenderness around incisions, which are C/D/I. J tube in place. Extremities: Calves soft and nontender. Distal pulses intact bilaterally. No edema. Hospital course: Admitted for the above name procedure, which was tolerated well. Post op, the pt was transferred to [facility] and put on ice chips only diet. On POD#1, pain was well controlled and diet was tolerated well. LFT's outside of normal limits were investigated with an MRCP, which showed questionable gallbladder disease, but no liver tumor. Attending recommended outpatient ercp and stenting. On POD#2, his pain at the surgical site was even more decreased and was recovering well from operation; started on clear liquids diet in the morning, which was tolerated well. Instructions were given to the patient regarding diet, medications, activity, and post operative follow up. All questions were answered. Discharged home in stable condition on 05/12/2019.
[2019-05-12 15:50] VITALS: BP 147/98
[2019-05-12] MEDS ORDERED: Sucralfate TAB* 1 GM PO SCH (21:00)
== END 2019-05-12 18:50 | disposition home or self-care (01) ==
LOC: OR 12:29 → INTOOBSV 18:29 → SSU 18:29
PROVIDERS: ADMIT Physician Assistant Medical; ATTEND Surgery
DX: C16.9 Malignant neoplasm of stomach, unspecified (principal); M06.9 Rheumatoid arthritis, unspecified; F17.210 Nicotine dependence, cigarettes, uncomplicated; F12.90 Cannabis use, unspecified, uncomplicated
CPT/HCPCS: 36415; 74160; 74181; 76000; 76376; 76705; 80048; 80053; 80076; 82150; 82248; 83690; 83735; 85025; 93005; 96365; 96367; 96372; 96375; 96376; 99233; A9270-GY; G0378; J0690; J1100; J1170; J1642; J1644; J2250; J2405; J2543; J2704; J2710; J2765; J3010; J3475; Q9967

== ENCOUNTER 2019-08-30 09:52 | Inpatient (IN) ==
[2019-08-30 10:52] LABS: Hematocrit 31 % (42-52); Hemoglobin 10.4 g/dL (14.0-18.0); Mean Corpuscular HGB Conc 33 g/dL (31-36); Mean Corpuscular Hemoglobin 32 pg (27-31); Mean Corpuscular Volume 95 fL (80-94); Mean Platelet Volume 9.5 fL (7.4-10.4); Platelet Count 169 10^3/uL (150-450); Red Blood Count 3.27 10^6 /uL (4.18-5.48); Red Cell Distribution Width 20 % (10-15); White Blood Count 5.1 10^3/uL (3.5-10.8)
[2019-08-30 11:07] LABS: Albumin 3.5 g/dL (3.2-5.2); Albumin/Globulin Ratio 1.1 (1-3); Calcium 9.1 mg/dL (8.6-10.3); EGFR African American 128.1 (>60); EGFR Non-African American 105.9 (>60); Globulin 3.2 g/dL (2-4); Magnesium 1.7 mg/dL (1.9-2.7); Potassium 3.9 mmol/L (3.5-5.0); Total Bilirubin 0.6 mg/dL (0.2-1.0); Total Protein 6.7 g/dL (6.4-8.9)
[2019-08-30 11:28] LABS: ABS Lymphocytes 0.3 10^3/ul (1.0-4.8); ABS Monocytes 0.6 10^3/ul (0-0.8); Lymphocyte % 6.1 %; Nucleated Red Blood Cells % 0.2
[2019-08-30] MEDS ORDERED: Ondansetron 4 mg VIAL 2 MG/ML 2 ml VIAL IV PRN (11:58)
[2019-08-30] MEDS ORDERED: ZOSYN 3.375 GM x ONE DOSE over 30 miuntes IV (12:00)
[2019-08-30] MEDS ORDERED: Zosyn per Pharmacy NOTE FOLLOW UP SCH (13:00)
[2019-08-30 14:35] LABS: Urine Appearance Cloudy; Urine Bilirubin Negative (Negative); Urine Blood Negative (Negative); Urine Color Yellow; Urine Glucose Negative (Negative); Urine Ketones Negative (Negative); Urine Nitrite Negative (Negative); Urine Protein 1+(30 mg/dL) (Negative); Urine Specific Gravity 1.029 (1.010-1.030); Urine Urobilinogen Negative (Negative)
[2019-08-30 14:44] LABS: Urine Bacteria Absent (Absent); Urine Red Blood Cell 1+(3-5/hpf) (Absent); Urine Squamous Epithelial Cell Present (Absent); Urine White Blood Cell Trace(0-5/hpf) (Absent)
[2019-08-30] MEDS: ZOSYN 3.375 GM Q8H per EXTENDED INFUSION IV SCH ×2 (15:23→23:23)
[2019-08-30] MEDS: NS 0.9% 1000 ml BAG 1,000 ML IV SCH (15:24)
[2019-08-30] MEDS ORDERED: NS 0.9% IV ONE (16:00)
[2019-08-30] MEDS: Enoxaparin 40 MG/0.4 ML SYR(*) SUBCUT SCH (20:10)
[2019-08-30] MEDS ORDERED: Nicotine PATCH 21 MG/24 HR PATCH TRANSDERM SCH ×2 (23:30)
[2019-08-31] MEDS: NS 0.9% 1000 ml BAG 1,000 ML IV SCH ×2 (03:50→15:12)
[2019-08-31 08:07] LABS: Hematocrit 24 % (42-52); Hemoglobin 8.2 g/dL (14.0-18.0); Mean Corpuscular HGB Conc 34 g/dL (31-36); Mean Corpuscular Hemoglobin 32 pg (27-31); Mean Corpuscular Volume 94 fL (80-94); Mean Platelet Volume 9.4 fL (7.4-10.4); Platelet Count 129 10^3/uL (150-450); Red Blood Count 2.56 10^6 /uL (4.18-5.48); Red Cell Distribution Width 20 % (10-15); White Blood Count 10.9 10^3/uL (3.5-10.8)
[2019-08-31] MEDS: ZOSYN 3.375 GM Q8H per EXTENDED INFUSION IV SCH ×2 (08:22→15:09)
[2019-08-31] MEDS: Nicotine PATCH 21 MG/24 HR PATCH TRANSDERM SCH (08:22)
[2019-08-31 08:24] LABS: Albumin 2.7 g/dL (3.2-5.2); Albumin/Globulin Ratio 1.1 (1-3); BUN/Creatinine Ratio 13.5 (8-20); EGFR African American 195.5 (>60); EGFR Non-African American 161.6 (>60); Globulin 2.4 g/dL (2-4); Potassium 3.3 mmol/L (3.5-5.0); Total Bilirubin 0.4 mg/dL (0.2-1.0); Total Protein 5.1 g/dL (6.4-8.9)
[2019-08-31 08:47] LABS: ABS Basophils 0.1 10^3/ul (0-0.2); ABS Lymphocytes 0.6 10^3/ul (1.0-4.8); ABS Monocytes 1.4 10^3/ul (0-0.8); Lymphocyte % 5.2 %; Nucleated Red Blood Cells % 0.2
[2019-08-31 09:01] LABS: Polychromasia 1+
[2019-08-31 10:08] LABS: Magnesium 1.5 mg/dL (1.9-2.7)
[2019-08-31] MEDS: Potassium Chlor 20 meq TAB.ER PO SCH ×2 (11:29→20:50)
[2019-08-31] MEDS: Enoxaparin 40 MG/0.4 ML SYR(*) SUBCUT SCH (11:30)
[2019-09-01] MEDS: ZOSYN 3.375 GM Q8H per EXTENDED INFUSION IV SCH ×4 (00:59→21:58)
[2019-09-01] MEDS: NS 0.9% 1000 ml BAG 1,000 ML IV SCH (04:59)
[2019-09-01] MEDS: Potassium Chlor 20 meq TAB.ER PO SCH ×2 (07:41→21:54)
[2019-09-01] MEDS: Nicotine PATCH 21 MG/24 HR PATCH TRANSDERM SCH (07:42)
[2019-09-01 09:09] LABS: Hematocrit 28 % (42-52); Hemoglobin 9.2 g/dL (14.0-18.0); Mean Corpuscular HGB Conc 34 g/dL (31-36); Mean Corpuscular Hemoglobin 32 pg (27-31); Mean Corpuscular Volume 95 fL (80-94); Mean Platelet Volume 9.2 fL (7.4-10.4); Platelet Count 162 10^3/uL (150-450); Red Blood Count 2.91 10^6 /uL (4.18-5.48); Red Cell Distribution Width 20 % (10-15); White Blood Count 22.3 10^3/uL (3.5-10.8)
[2019-09-01 09:25] LABS: ALT 15 U/L (7-52); AST 13 U/L (13-39); Albumin 2.9 g/dL (3.2-5.2); Albumin/Globulin Ratio 1.1 (1-3); Alkaline Phosphatase 200 U/L (34-104); Anion Gap 5 mmol/L (2-11); BUN/Creatinine Ratio 6.4 (8-20); Blood Urea Nitrogen 3 mg/dL (6-24); CO2 Carbon Dioxide 27 mmol/L (22-32); Chloride 101 mmol/L (101-111); EGFR African American 219.7 (>60); EGFR Non-African American 181.6 (>60); Globulin 2.6 g/dL (2-4); Glucose 125 mg/dL (70-100); Magnesium 1.6 mg/dL (1.9-2.7); Potassium 3.5 mmol/L (3.5-5.0); Sodium 133 mmol/L (135-145); Total Protein 5.5 g/dL (6.4-8.9)
[2019-09-01 09:41] LABS: ABS Basophils 0.1 10^3/ul (0-0.2); ABS Lymphocytes 0.8 10^3/ul (1.0-4.8); ABS Monocytes 1.2 10^3/ul (0-0.8); Lymphocyte % 3.6 %
[2019-09-01] MEDS ORDERED: Iohexol 300 (CONTRAST) 10 ML SDV IV ONE (10:38)
[2019-09-01 11:34] LABS: Amylase 15 U/L (29-103); C Reactive Protein 144.04 mg/L (<8.01)
[2019-09-01] MEDS: Enoxaparin 40 MG/0.4 ML SYR(*) SUBCUT SCH (14:26)
[2019-09-01] MEDS ORDERED: Bismuth Subsalicylate 30 ML/527 MG ML PO PRN (20:45)
[2019-09-02] MEDS: NS 0.9% 1000 ml BAG 1,000 ML IV SCH (00:45)
[2019-09-02 06:45] LABS: Hematocrit 26 % (42-52); Hemoglobin 8.8 g/dL (14.0-18.0); Mean Corpuscular HGB Conc 33 g/dL (31-36); Mean Corpuscular Hemoglobin 32 pg (27-31); Mean Corpuscular Volume 95 fL (80-94); Mean Platelet Volume 9.3 fL (7.4-10.4); Platelet Count 175 10^3/uL (150-450); Red Cell Distribution Width 20 % (10-15); White Blood Count 24.7 10^3/uL (3.5-10.8)
[2019-09-02 06:57] LABS: Albumin 2.9 g/dL (3.2-5.2); Albumin/Globulin Ratio 1.1 (1-3); BUN/Creatinine Ratio 5.4 (8-20); Calcium 8.3 mg/dL (8.6-10.3); EGFR African American 179.5 (>60); EGFR Non-African American 148.3 (>60); Globulin 2.6 g/dL (2-4); Magnesium 1.6 mg/dL (1.9-2.7); Potassium 3.5 mmol/L (3.5-5.0); Total Bilirubin 0.3 mg/dL (0.2-1.0); Total Protein 5.5 g/dL (6.4-8.9)
[2019-09-02] MEDS: ZOSYN 3.375 GM Q8H per EXTENDED INFUSION IV SCH (07:39)
[2019-09-02] MEDS: Nicotine PATCH 21 MG/24 HR PATCH TRANSDERM SCH (07:39)
[2019-09-02] MEDS ORDERED: Magnesium Sulf 4 GM/100 ML IV 4,000 MG/100 ML BAG IVPB ONE (09:20)
[2019-09-02] MEDS: Potassium Chlor 20 meq TAB.ER PO SCH (10:12)
[2019-09-02 10:14] LABS: ABS Lymphocytes 0.9 10^3/ul (1.0-4.8); ABS Monocytes 1.2 10^3/ul (0-0.8); Lymphocyte % 3.7 %; Nucleated Red Blood Cells % 0.2
[2019-09-02 13:10] VITALS: BP 128/79
== END 2019-09-02 14:29 | disposition home or self-care (01) | DRG 872 ==
LOC: CHOA 09:52 → MEDTELE 11:58
PROVIDERS: ADMIT Internal Medicine Hematology & Oncology; ATTEND Internal Medicine Hematology & Oncology